=== PATIENT | female | born 1980 | race Caucasian/White ===

== ENCOUNTER 2018-08-09 19:40 | Observation (INO) | payer MEDICAID, SELFPAY ==
[2018-08-09] VITALS (9 sets, daily range): BP systolic 119–158; BP diastolic 62–85; PULSE 88–98; RESP 18–28; TEMP 36.4–36.7; O2SAT 92–94; BMI 51.7
--- NOTE | 2018-08-09 19:57 | EKG12_ITS ---
Test Reason : SOB Blood Pressure : / mmHG Vent. Rate : 083 BPM Atrial Rate : 083 BPM P-R Int : 172 ms QRS Dur : 102 ms QT Int : 394 ms P-R-T Axes : 060 -35 048 degrees QTc Int : 462 ms Sinus rhythm with occasional Premature ventricular complexes Left axis deviation Incomplete right bundle branch block Moderate voltage criteria for LVH, may be normal variant Possible Lateral infarct , age undetermined Abnormal ECG Confirmed by JOSE REYNA, MITZI ([id number]), photograph editor DANUTA HERRERA ([id number]) on 08/14/2018 8:41:50 AM Referred By: Lobito Zhang Confirmed By:MITZI GARCIA MD
--- NOTE | 2018-08-09 19:58 | CT_ITS ---
STUDY: CTA CHEST REASON FOR EXAM: Female, 37 years old. Shortness of breath. Elevated WBC. History of DVT and pulmonary embolus. RADIATION DOSAGE (If Supplied By Facility): CTDIvol = ( 15.06 ) mGy, DLP = ( 656.33 ) mGycm TECHNIQUE: The examination was performed with the intravenous administration of 100ML ml of Isovue 370 contrast material. Post-processing of the angiographic images was performed, with multiplanar reformation and 3D reconstruction. Individualized dose optimization techniques were used for this CT. COMPARISON: CTA of the chest, October 19, 2014. Chest, January 18, 2015. FINDINGS: Normal enhancement of the main pulmonary artery and right and left pulmonary arteries. Normal enhancement of the bilateral peripheral pulmonary arteries. There is no demonstrated pulmonary embolism. Normal thoracic aorta and visualized great vessels. There is no demonstrated aortic dissection. The heart is mildly enlarged. Normal pericardium. There is stable prevascular paratracheal and subcarinal lymphadenopathy. Normal hilar regions. Normal visualized trachea and bronchi. The lungs are well expanded. There are patchy infiltrates at the lung bases. Minimal anterior upper lobe densities are also seen. These findings appear stable when compared to the previous examination. Normal pleura. Normal chest wall structures. Normal osseous structures. Normal visualized upper abdomen. CT/CTA Chest W/WO Contrast IMPRESSION: 1. No evidence of pulmonary embolus. 2. No aortic dissection or aneurysm. 3. Chronic pulmonary infiltrates. 4. Stable mediastinal lymphadenopathy. Electronically Signed: Panchito Ontiveros DO at 21:37 EST Tel [phone], Service support ,
--- NOTE | 2018-08-09 20:02 | ED.DCSUM_ITS ---
- ER Visit Summary Date of Service: 08/09/18 Chief Complaint: Shortness of breath, cough History of Present Illness: The patient is a 37 F presenting with cough, shortness of breath. This started on Monday. She was seen at urgent care on Monday. She was started on Mucinex, Z-Myke. She states she is not improved. She was advised to come to the ED today for further evaluation. She has shortness of breath, rhinorrhea, sore throat. She states her sore throat has started to improve. She has a history of previous PE. She denies chest pain. She is not on anticoagulants. She takes albuterol as needed at home but states she has no diagnosed lung disease. She is not a smoker. Physical Examination: Vitals are stable. Respiratory rate 28. Patient is afebrile. Alert no acute distress. HEENT exam is unremarkable. Neck is supple. Lungs expiratory wheezing bilaterally. Tachypnea Heart is regular rate and rhythm. Abdomen is soft nontender nondistended. Extremities are unremarkable. Skin is warm and dry. No focal neurologic deficit. Remainder of exam is unremarkable. Emergency Department Course and Treatment: Patient was given albuterol, Atrovent aerosols. EKG is sinus rate of 83. White count is 19.2. Chemistries unremar kable. Troponin 0.045. CTA chest shows no PE, patchy infiltrates. She was given Levaquin IV. Patient walked to the bathroom and after ambulation she was 87% on room air. Discussed with the hospitalist for admission. Disposition: Admission Impression: Bronchitis, hypoxia This note was generated with [employer] dictation software. It may contain incorrect words, spelling, and punctuation that were not noted in review of the chart prior to signing ED Disposition - Plan for ED Patient: Referrals: Uziel Nieves MD [Primary Care Provider] -
[2018-08-09] MEDS: Ipratropium/Albuterol Sulfate 3 ML AMPUL.NEB INHALATION (20:22)
[2018-08-09 20:25] LABS: Absolute Lymphocyte Count 1.56 X10^3/ul (0.83-4.51); Absolute Neutrophil Count 15.4 X10^3/uL (2.0-7.7); Basophil# 0.03 X10^3/uL; Basophil% 0.2 % (0-1); Differential Indicated SCAN CRITERIA MET; Eosinophil# 0.02 X10^3/uL; Eosinophils% 0.1 % (0-5); Hematocrit 40.7 % (37-47); Hemoglobin 12.8 g/dl (12.0-15.0); Lymphocyte # 1.56 X10^3/ul (4.0); Lymphocyte % 8.1 % (19-41); Mean Corp Hgb Conc 31.4 g/gl (32-36); Mean Corpuscular Hgb 25.4 pg (27.0-32.0); Mean Corpuscular Volume 80.9 fL (81-99); Mean Platelet Vol. 9.7 fl (6.2-12.0); Monocyte# 2.09 X10^3/uL; Monocyte% 10.9 % (0-10); Neutrophil % 80.4 % (47-70); POSITIVE COUNT NO; POSITIVE DIFFERENTIAL YES; POSITIVE MORPHOLOGY NO; Platelet Count 312 K/mm3 (150-450); RBC Distribution Width CV 14.8 % (11.6-14.6); Red Blood Count 5.03 M/mm3 (4.2-5.4); White Blood Count 19.2 K/mm3 (4.4-11.0)
[2018-08-09 20:37] LABS: Anion Gap 8 (5-15); BUN 21 mg/dL (7-18); BUN/Creat Ratio 25.3 RATIO (10-20); Calcium,Total 8.4 mg/dL (8.5-10.1); Chloride 103 mmol/L (98-107); Creatinine, Serum 0.83 mg/dL (0.55-1.02); EST Glomerular Filtration Rate 82 mL/min (>60); Est Glom Filt Rate - Afr Amer 99 mL/min (>60); Estimated Creatinine Clearance 92.71 ml/min; Glucose 107 mg/dL (74-106); Potassium 3.8 mmol/L (3.5-5.1); Sodium Level 137 mmol/L (136-145)
[2018-08-09 20:52] LABS: Platelet Estimate ADEQUATE (ADEQ)
[2018-08-09 20:53] LABS: Red Cell Morphology NORM C+C NORMAL (NORM C&C)
--- NOTE | 2018-08-09 22:56 | ED.RN ---
WHEN PT WALKED BACK FROM BATHROOM UPON SITTING IN HER BED HER SPO2 WAS 87% WITH LABORED BREATHING
[2018-08-09] MEDS: Albuterol 2.5 MG/3 ML VIAL.NEB. INHALATION (23:18)
--- NOTE | 2018-08-09 23:29 | PCM.HP.STD ---
Problem List (1) History of pulmonary embolism Status: Chronic (2) Chronic interstitial lung disease Status: Chronic (3) Connective tissue disease Status: Chronic (4) Morbid obesity Status: Chronic History of Present Illness Date of Admission: 08/09/18 Chief Complaint: Productive cough, shortness of breath. The patient is a 37 year old F with past medical history as mentioned above presented to the emergency because of productive cough and shortness of breath. Her symptoms started 5 days ago with increasing shortness of breath, mainly with moderate activity and sometimes even with minimal activity, associated with reactive cough with moderate amount of thick green sputum, aggravated by exertion, minimally relieved with rest and without other associated symptoms. She was seen 3 days ago at the urgent care and she was given Z-Myke and steroids but she is stated there was no improvement. She mentioned that she has been having this chronic productive cough with thick green sputum for a long time and basically when she was diagnosed with connective tissue disease according to the patient with lung involvement. She has been following up with pulmonology as outpatient at [facility] but there was no official diagnosis given for her lung problems. Today in the emergency room, patient was afebrile, blood pressure and heart rate was stable, pulse ox was 94% on room air at rest. With ambulation, her pulse ox went down to 87% on room air and she had labored breathing. Her routine blood work was remarkable for leukocytosis, otherwise normal. EKG revealed normal sinus rhythm with occasional PVCs, no acute ischemic changes. Troponin was negative. CTA chest done because she had a history of PEs and showed no evidence of acute PE, no dissection and revealed chronic pulmonary infiltrate and stable mediastinal lymphadenopathy. She is being admitted for probable acute bronchitis and hypoxia.. Past Medical History Past Medical History (Chronic Problems): Chronic Problems History of pulmonary embolism (Chronic) Chronic interstitial lung disease (Chronic) Connective tissue disease (Chronic) Morbid obesity (Chronic) Allergies cephalexin monohydrate [From Keflex] Allergy (Verified 08/09/18 19:43) Rash heparin Allergy (Verified 08/09/18 19:43) Rash Penicillins Allergy (Verified 08/09/18 19:43) Rash Home Medications: Ambulatory Orders Medication Instructions Recorded Vits [Prenatabs FA] 1 tablet PO DAILY 01/18/15 Gabapentin [Neurontin] 300 mg PO BID 12/11/15 Omeprazole [Prilosec] 40 mg PO BID 12/11/15 Albuterol Inhaler [Ventolin Hfa 1 - 2 puff INHALATION Q4H PRN PRN 08/13/16 (SP)] Aspirin 81 mg PO DAILY 08/13/16 Hydroxychloroquine [Plaquenil] 200 mg PO BIDCM 10/17/16 Loratadine [Claritin] 10 mg PO DAILY 08/09/18 Surgical History: noncontributory Psychiatric History: No pertinent psych hx [employer] History: No pertinent [employer] history Lives: Spouse/ Significant Other Smoking Status: Former smoker Alcohol: None Drugs: None - *Family History Maternal History Items: No pertinent history Paternal History Items: No pertinent history Review of Systems Constitutional: Denies: Anorexia, Chills, Fever, Malaise, Weakness Eyes: Denies: Blurred vision, Double vision, Drainage, Eyelid Inflammation, Redness HEENT: Denies: Ear Pain, Eye Pain, Nasal Congestion, Sore Throat Cardiovascular: Denies: Chest Pain, Chest Pressure, Palpitations, Paroxysmal Noc. Dyspnea, Syncope Respiratory: Reports: Cough, Shortness of Breath, Shortness of breath upon exertion, Sputum production. Denies: Pleuritic Pain, Wheezing Gastrointestinal: Denies: Abdominal Pain, Constipation, Diarrhea, Nausea, Vomiting Genitourinary: Denies: Dysuria, Frequency, Hematuria Musculoskeletal: Denies: Arm Pain, Back Pain, Foot Pain Skin: Denies: Dryness, Rash Neurological: Denies: Balance problems, Double vision, Change in Speech, Focal weakness, Headaches, Incoordination, Numbness Psychiatric: Denies: Anxiety, Depression Endocrine: Denies: Change in Body Habitus, Polydipsia VTE Information - Inpt Only VTE Present on Admission: No VTE Mechan Device Prophylaxis: SCD's VTE Pharm Prophylaxis ordered?: No - Physical Exam General: Alert, Oriented x3, Cooperative, No apparent distress HEENT: Atraumatic, PERRLA, EOMI, Normocephalic Oral: Moist Mucosa, No Gingival or Mucosal Lesions/ Ulcerations Neck: Supple, No JVD, Negative Carotid Bruits, Trachea Midline, Thyroid Normal Size and Texture Lungs: Clear to auscultation, No rhonchi, No wheeze, No rales Cardiovascular: Regular Rhythm, Normal S1, Normal S2, PMI Normal Abdomen: Bowel Sounds Present, Soft, Non Tender, Non-Distended, No Hepato-splenomegaly, Obese Extremities: No clubbing, No cyanosis, No edema Skin: No rashes, No breakdown Lymphatic: No Cervical, Supraclavicular, or Inguinal Adenopathy Neurological: Cranial nerves II-XII grossly intact, Motor Exam 5/5 strength throughout Psych/Mental Status: Normal Affect, Appropriate, Alert and oriented to time, place, person, mood and affect Vital Signs Temp Pulse Resp BP Pulse Ox 97.9 F 82 14 133/80 H 93 08/09/18 23:00 08/09/18 23:18 08/09/18 23:18 08/09/18 23:00 08/09/18 23:00 Oxygen Delivery Method Room Air Weight: 340 lb Body Mass Index (BMI) 51.7 Laboratory Tests Past 24 Hrs 08/09/18 08/09/18 20:11 20:11 WBC 19.2 H RBC 5.03 Hgb 12.8 Hct 40.7 MCV 80.9 L MCH 25.4 L MCHC 31.4 L RDW 14.8 H RDW Differential 43.0 Plt Count 312 MPV 9.7 Immature Gran % (Auto) 0.300 Neut % (Auto) 80.4 H Lymph % (Auto) 8.1 L [place] % (Auto) 10.9 H Eos % (Auto) 0.1 Baso % (Auto) 0.2 Absolute Neuts (auto) 15.4 H Absolute Lymphs (auto) 1.56 Total Counted Not Reportable Differential Comment SEE COMMENT Diff Path Review May foll Platelet Estimate ADEQUATE RBC Morphology NORM C+C Sodium 137 Potassium 3.8 Chloride 103 Carbon Dioxide 26.0 Anion Gap 8 BUN 21 H Creatinine 0.83 Estim Creat Clear Calc 92.71 Est GFR (MDRD) Af Amer 99 Est GFR (MDRD) Non-Af 82 BUN/Creatinine Ratio 25.3 H Glucose 107 H Calcium 8.4 L Troponin I 0.045 Clinical Impression(s) from Imaging Studies Chest CTA 08/09/18 19:58 IMPRESSION: 1. No evidence of pulmonary embolus. 2. No aortic dissection or aneurysm. 3. Chronic pulmonary infiltrates. 4. Stable mediastinal lymphadenopathy. Electronically Signed: Panchito Ontiveros DO at 21:37 EST Tel [phone], Service support , Assessment/Plan This is a 37 years old female patient presented to the ED because of shortness of breath and productive cough, was on Z-Myke and steroids as outpatient without improvement, found to have chronic pulmonary infiltrate on CTA chest without evidence of acute PE or dissection, found to have leukocytosis and she was hypoxic with ambulation. #1 shortness of breath/productive cough/probable acute bronchitis: CTA chest reviewed, revealed chronic pulmonary infiltrate, no acute findings. Patient did have a history of chronic lung disease, has been following with pulmonology at [facility] and no official diagnosis made according to the patient. She has been using inhalers, nebulizer treatment and oxygen at home. She is oxygen mainly with exertion. Her mentioned that she never passed ambulatory pulse oximeter. She does have leukocytosis which is likely because of recent use of steroids. Patient wanted to go home but the ER physician that she should be admitted. At this time, pneumonia is unlikely. Plan[facility], sputum culture, respiratory panel for viruses, DuoNeb every 6 hours, albuterol as needed, start IV empiric Levaquin, incentive spirometer, chest physiotherapy, repeat CBC tomorrow morning, ambulatory pulse oximetry tomorrow morning. #2 connective tissue disease/fibromyalgia/probable chronic interstitial lung disease: Without official diagnosis, follows up with [facility] pulmonology [place]. Plan as above, continue Plaquenil and Neurontin. #3 chronic respiratory failure, on home oxygen mainly with exertion. As above. #4 history of PE: Completed treatment with anti-correlation with time ago. CTA chest negative for acute PE. #5 DVT prophylaxis: SCDs. This note was generated with [employer] dictation software. It may contain incorrect words, spelling, and punctuation that were not noted in checking the note before signing. Code Visit OBSV E&M: 71044 Initial observation care L2
[2018-08-09] MEDS: levoFLOXacin IV 750 MG/150 ML BAG 100 MG IV (23:39)
[2018-08-10] VITALS (12 sets, daily range): BP systolic 119–140; BP diastolic 72–85; PULSE 71–93; RESP 18–24; TEMP 36.3–36.6; O2SAT 87–96; BMI 56.2
[2018-08-10] MEDS: Ipratropium/Albuterol Sulfate 3 ML AMPUL.NEB INHALATION ×3 (00:45→13:15)
[2018-08-10 06:33] LABS: Absolute Lymphocyte Count 1.94 X10^3/ul (0.83-4.51); Basophil# 0.03 X10^3/uL; Basophil% 0.2 % (0-1); Eosinophil# 0.01 X10^3/uL; Eosinophils% 0.1 % (0-5); Hematocrit 39.5 % (37-47); Hemoglobin 12.8 g/dl (12.0-15.0); Lymphocyte # 1.94 X10^3/ul (4.0); Lymphocyte % 14.4 % (19-41); Mean Corp Hgb Conc 32.4 g/gl (32-36); Mean Corpuscular Volume 80.3 fL (81-99); Monocyte# 1.45 X10^3/uL; Monocyte% 10.7 % (0-10); Neutrophil # 10.04 X10^3/uL (2.7-7.7); Neutrophil % 74.4 % (47-70); Platelet Count 330 K/mm3 (150-450); Red Blood Count 4.92 M/mm3 (4.2-5.4); White Blood Count 13.5 K/mm3 (4.4-11.0)
[2018-08-10 06:35] LABS: POSITIVE COUNT NO; POSITIVE DIFFERENTIAL NO; POSITIVE MORPHOLOGY NO
--- NOTE | 2018-08-10 06:47 | PN_ITS ---
Subjective: The patient is a 37-year-old female with a past medical history of chronic interstitial lung disease, history of pulmonary embolism, super morbid obesity and an unspecified connective tissue disease for which she takes Plaquenil who presented to the emergency room at [facility] complaining of cough productive of green sputum and shortness of breath aggravated with exertion. She was seen at an urgent care 3 days prior to presenting to the emergency room and was given a Z-Myke and oral steroids with no improvement. CTA of the chest was negative for pulmonary embolism but did show chronic infiltrates in the bases and stable mediastinal lymphadenopathy that has been present since 2015. Vital signs in the emergency department were temperature 97.5, pulse rate 98, blood pressure 158/85, respiratory rate of 28 and she was 93% saturated on room air. She has home O2 and wears this primarily with exertion. Pulse ox with exertion was 87% on room air. On physical examination by the night hospitalist the lungs were clear to auscultation without wheezes, rhonchi or rails. CBC showed an elevated white blood cell count at 19.2 but the patient has been on oral steroids. Hemoglobin and platelets were within normal limits but the MCV is decreased at 80.9 with an RDW of 14.8. BMP was remarkable for an elevated BUN at 21 with a creatinine of 0.83 and I suspect this is secondary to steroids. Troponin was 0.045 and within normal limits. - Physical Exam Vital Signs Temp Pulse Resp BP Pulse Ox 97.8 F 71 22 H 119/80 96 08/10/18 06:16 08/10/18 06:16 08/10/18 06:16 08/10/18 06:16 08/10/18 06:16 Oxygen Delivery Method Room Air Weight: 359 lb 2.128 oz Body Mass Index (BMI) 56.2 Laboratory Tests Past 24 Hrs 08/09/18 08/09/18 08/10/18 20:11 20:11 06:08 WBC 19.2 H 13.5 H RBC 5.03 4.92 Hgb 12.8 12.8 Hct 40.7 39.5 MCV 80.9 L 80.3 L MCH 25.4 L 26.0 L MCHC 31.4 L 32.4 RDW 14.8 H 15.0 H RDW Differential 43.0 43.0 Plt Count 312 330 MPV 9.7 10.0 Immature Gran % (Auto) 0.300 0.200 Neut % (Auto) 80.4 H 74.4 H Lymph % (Auto) 8.1 L 14.4 L [place] % (Auto) 10.9 H 10.7 H Eos % (Auto) 0.1 0.1 Baso % (Auto) 0.2 0.2 Absolute Neuts (auto) 15.4 H 10.0 H Absolute Lymphs (auto) 1.56 1.94 Total Counted Not Reportable Not Reportable Differential Comment SEE COMMENT Diff Path Review May foll Platelet Estimate ADEQUATE RBC Morphology NORM C+C Sodium 137 Potassium 3.8 Chloride 103 Carbon Dioxide 26.0 Anion Gap 8 BUN 21 H Creatinine 0.83 Estim Creat Clear Calc 92.71 Est GFR (MDRD) Af Amer 99 Est GFR (MDRD) Non-Af 82 BUN/Creatinine Ratio 25.3 H Glucose 107 H Calcium 8.4 L Troponin I 0.045 Medical Necessity - Tobacco Use Smoking Status: Former smoker
--- NOTE | 2018-08-10 08:14 | PCM.CONS.GEN ---
Reason for Consult Date of Consultation: 08/10/18 Reason for Consultation: Abnormal CT chest with history of ILD History of Present Illness: The patient is a 37-year-old female, with a history as outlined below, who presented to the emergency department on August 09 with complaints of shortness of breath and cough. The patient reports that she was recently evaluated in the urgent care for the aforementioned symptoms and treated with a Z-Myke and prednisone. However, her symptoms did not improve and she states that she noted her oxygen levels to be low on her home pulse oximeter, at rest, in the high 80s. The patient does not routinely utilize supplemental oxygen at her baseline. The patient reports a remote smoking history, but quit completely 10+ years ago. She is currently followed by Dr. Onofre at the [facility]. She reports a history of underlying mixed connective tissue disease, with potential lung involvement. She is currently prescribed an albuterol metered-dose inhaler and reports occasional use. She reports limited symptom improvement with the use of the aforementioned medication. She is currently on treatment with Plaquenil by her personal banking advisor. She does report that her shortness of breath has worsened over the last year, which happens to coincide with a 50 pound weight gain. She does report having had pulmonary function studies completed previously, but is unaware of the results. She is not currently employed. The patient has undergone a sleep study approximately 3 years ago, for which she was prescribed nocturnal PAP therapy. However, she is noncompliant with its use due to an ill fitting mask. I did inquire as to whether the patient has ever undergone an echocardiogram and evaluation for pulmonary hypertension. The patient denied having undergone such a test previously, but did report that she was scheduled for an echo this morning at the [facility]. In addition, the patient does report having been diagnosed with pulmonary emboli in 2013. She was treated for a period of time with anticoagulation, but that has since been discontinued. On arrival to the emergency department, the patient was noted to be afebrile and mildly hypertensive. She was initially maintaining appropriate oxygen saturations on room air, but reportedly became hypoxic with ambulation. Initial laboratory evaluation revealed elevated white blood cell count to 19,000. Chemistry profile was unrevealing. Troponin was negative. A CTA chest was obtained which revealed no evidence for pulmonary embolism. There was stable appearing mediastinal adenopathy and patchy infiltrates bilaterally, which appear more peripheral based. There was no gross evidence of bronchiectasis. The patient was started on antibiotics and aerosols. She was subsequently admitted to the medical surgical floor for ongoing management. Past Medical History Past Medical History (Chronic Problems): Chronic Problems History of pulmonary embolism (Chronic) Chronic interstitial lung disease (Chronic) Connective tissue disease (Chronic) Morbid obesity (Chronic) Allergies cephalexin monohydrate [From Keflex] Allergy (Verified 08/09/18 19:43) Rash heparin Allergy (Verified 08/09/18 19:43) Rash Penicillins Allergy (Verified 08/09/18 19:43) Rash Home Medications: Ambulatory Orders Medication Instructions Recorded Vits [Prenatabs FA ] 1 tablet PO DAILY 01/18/15 Gabapentin [Neurontin] 300 mg PO BID 12/11/15 Omeprazole [Prilosec] 40 mg PO BID 12/11/15 Albuterol Inhaler [Ventolin Hfa] 1 - 2 puff INHALATION Q4H PRN PRN 08/13/16 Aspirin 81 mg PO DAILY 08/13/16 Hydroxychloroquine [Plaquenil] 200 mg PO BIDCM 10/17/16 Loratadine [Claritin] 10 mg PO DAILY 08/09/18 Guaifenesin [Mucinex] 1,200 mg PO BID #30 tab 08/10/18 Levofloxacin [Levaquin] 750 mg PO DAILY #5 tab 08/10/18 Venlafaxine HCl [Effexor Xr] 75 mg PO DAILY #30 cap.er.24h 08/10/18 Surgical History: noncontributory Psychiatric History: No pertinent psych hx [employer] History: No pertinent [employer] history Lives: Spouse/ Significant Other Smoking Status: Former smoker Alcohol: None Drugs: None - *Family History Maternal History Items: No pertinent history Paternal History Items: No pertinent history Review of Systems Constitutional: Reports: Malaise, Fatigue. Denies: Chills, Fever Eyes: Denies: Blurred vision, Double vision HEENT: Reports: Sore Throat Cardiovascular: Denies: Chest Tightness Respiratory: Reports: Cough, Shortness of Breath, Sputum production Gastrointestinal: Denies: Abdominal Pain, Nausea, Vomiting Genitourinary: Denies: Dysuria Musculoskeletal: Denies: Joint Pain, Joint Tenderness Skin: Denies: Rash, Wounds Neurological: Denies: Numbness, Tingling, Focal weakness Psychiatric: Denies: Anxiety, Depression, Homicidal Ideations, Suicidal Ideations Hematologic/ Lymphatic: Reports: Hx of blood clot Objective: The patient's most recent lab work, culture data and imaging studies have all been personally reviewed. Respiratory viral panel and expectorated sputum culture are pending. - Physical Exam General: Alert, Oriented x3, Cooperative, No apparent distress, - - Morbidly obese. Sitting in bedside recliner. HEENT: Atraumatic, PERRLA, Normocephalic Oral: No Gingival or Mucosal Lesions/ Ulcerations Neck: Supple, No Nodes, Trachea Midline, - - Large neck circumference with redundant soft tissue Lungs: No rhonchi, No wheeze, Diminished, - - Bibasilar crackles present Cardiovascular: Regular rate, Regular Rhythm, Normal S1, Normal S2, No murmurs Abdomen: Bowel Sounds Present, Soft, Non Tender, Obese Extremities: No clubbing, No cyanosis Skin: No breakdown Musculoskeletal: No Tenderness to Palpation of Joints or Extremities Lymphatic: No Cervical, Supraclavicular, or Inguinal Adenopathy Neurological: Cranial nerves II-XII grossly intact, Neuro grossly intact Psych/Mental Status: Alert and oriented to time, place, person, mood and affect Vital Signs Temp Pulse Resp BP Pulse Ox 36.6 C 80 20 H 119/80 95 08/10/18 06:16 08/10/18 07:42 08/10/18 07:02 08/10/18 06:16 08/10/18 07:02 Oxygen Delivery Method Room Air Weight: 359 lb 2.128 oz Body Mass Index (BMI) 56.2 Laboratory Tests Past 24 Hrs 08/09/18 08/09/18 08/10/18 20:11 20:11 06:08 WBC 19.2 H 13.5 H RBC 5.03 4.92 Hgb 12.8 12.8 Hct 40.7 39.5 MCV 80.9 L 80.3 L MCH 25.4 L 26.0 L MCHC 31.4 L 32.4 RDW 14.8 H 15.0 H RDW Differential 43.0 43.0 Plt Count 312 330 MPV 9.7 10.0 Immature Gran % (Auto) 0.300 0.200 Neut % (Auto) 80.4 H 74.4 H Lymph % (Auto) 8.1 L 14.4 L [place] % (Auto) 10.9 H 10.7 H Eos % (Auto) 0.1 0.1 Baso % (Auto) 0.2 0.2 Absolute Neuts (auto) 15.4 H 10.0 H Absolute Lymphs (auto) 1.56 1.94 Total Counted Not Reportable Not Reportable Differential Comment SEE COMMENT Diff Path Review May foll Platelet Estimate ADEQUATE RBC Morphology NORM C+C Sodium 137 Potassium 3.8 Chloride 103 Carbon Dioxide 26.0 Anion Gap 8 BUN 21 H Creatinine 0.83 Estim Creat Clear Calc 92.71 Est GFR (MDRD) Af Amer 99 Est GFR (MDRD) Non-Af 82 BUN/Creatinine Ratio 25.3 H Glucose 107 H Calcium 8.4 L Troponin I 0.045 Clinical Impression(s) from Imaging Studies Chest CTA 08/09/18 19:58 IMPRESSION: 1. No evidence of pulmonary embolus. 2. No aortic dissection or aneurysm. 3. Chronic pulmonary infiltrates. 4. Stable mediastinal lymphadenopathy. Electronically Signed: Panchito Ontiveros DO at 21:37 EST Tel [phone], Service support , Assessment/Plan RECOMMENDATIONS: 1. Continue empiric antibiotics, pending infectious workup. 2. Perform room air ambulatory pulse ox 3. Obtain surface echocardiogram 4. Continue bronchodilators as ordered. IMPRESSIONS: 1. Exertional dyspnea/hypoxia/productive cough The patient reports a history of mixed connective tissue disease with lung involvement. Agree with continuing antibiotics, pending infectious workup. I do suspect that a large component of the patient's exertional dyspnea is likely the consequence of her body habitus. In addition, I would also be concerned about the possibility for underlying pulmonary hypertension. Therefore, I have placed an order to obtain an echocardiogram. I would plan to obtain a walking oximetry study to document the patient's oxygen saturations with exertion. Continue as needed albuterol. The patient is currently maintaining appropriate oxygen saturations on room air at rest. 2. Unspecified mixed connective tissue disease with potential lung involvement The findings noted on CT chest appear to be chronic in nature. Continue Plaquenil as ordered. 3. Super morbid obesity with underlying obstructive sleep apnea, noncompliant with nocturnal PAP therapy The sleep lab indicated that the patient underwent a titration PSG in December 2013, for which it was recommended that she be placed on Bipap with a pressure support of 10/4 cm H2O. However, given the patient's significant weight gain since that time, she would undoubtedly need to undergo a retitration study as an outpatient. 4. History of prior tobacco dependency/neuropathy/GERD/Personal history of prior venous thromboembolic disease Complicates care, management, recovery and prognosis. Continue home medications as indicated. This note was generated with [employer] dictation software. It may contain incorrect words, spelling, and punctuation that were not noted in checking the note before signing. Code Visit Inpatient E&M: 87431 Init Hosp L3
--- NOTE | 2018-08-10 08:28 | CON.PCM_ITS ---
Reason for Consult Date of Consultation: 08/10/18 Reason for Consultation: Abnormal CT chest with history of ILD History of Present Illness: The patient is a 37-year-old female, with a history as outlined below, who presented to the emergency department on August 09 with complaints of shortness of breath and cough. The patient reports that she was recently evaluated in the urgent care for the aforementioned symptoms and treated with a Z-Myke and prednisone. However, her symptoms did not improve and she states that she noted her oxygen levels to be low on her home pulse oximeter, at rest, in the high 80s. The patient does not routinely utilize supplemental oxygen at her baseline. The patient reports a remote smoking history, but quit completely 10+ years ago. She is currently followed by Dr. Onofre at the [facility]. She reports a history of underlying mixed connective tissue disease, with potential lung involvement. She is currently prescribed an albuterol metered- dose inhaler and reports occasional use. She reports limited symptom improvement with the use of the aforementioned medication. She is currently on treatment with Plaquenil by her roll clamp operator. She does report that her shortness of breath has worsened over the last year, which happens to coincide with a 50 pound weight gain. She does report having had pulmonary function studies completed previously, but is unaware of the results. She is not currently employed. The patient has undergone a sleep study approximately 3 years ago, for which she was prescribed nocturnal PAP therapy. However, she is noncompliant with its use due to an ill fitting mask. I did inquire as to whether the patient has ever undergone an echocardiogram and evaluation for pulmonary hypertension. The patient denied having undergone such a test previously, but did report that she was scheduled for an echo this morning at the [facility]. In addition, the patient does report having been diagnosed with pulmonary emboli in 2013. She was treated for a period of time with anticoagulation, but that has since been discontinued. On arrival to the emergency department, the patient was noted to be afebrile and mildly hypertensive. She was initially maintaining appropriate oxygen saturations on room air, but reportedly became hypoxic with ambulation. Initial laboratory evaluation revealed elevated white blood cell count to 19,000. Chemistry profile was unrevealing. Troponin was negative. A CTA chest was obtained which revealed no evidence for pulmonary embolism. There was stable appearing mediastinal adenopathy and patchy infiltrates bilaterally, which appear more peripheral based. There was no gross evidence of bronchiectasis. The patient was started on antibiotics and aerosols. She was subsequently admitted to the medical surgical floor for ongoing management. Past Medical History Past Medical History (Chronic Problems): Chronic Problems History of pulmonary embolism (Chronic) Chronic interstitial lung disease (Chronic) Connective tissue disease (Chronic) Morbid obesity (Chronic) Allergies cephalexin monohydrate [From Keflex] Allergy (Verified 08/09/18 19:43) Rash heparin Allergy (Verified 08/09/18 19:43) Rash Penicillins Allergy (Verified 08/09/18 19:43) Rash Home Medications: Ambulatory Orders Medication Instructions Recorded Vits [Prenatabs FA ] 1 tablet PO DAILY 01/18/15 Gabapentin [Neurontin] 300 mg PO BID 12/11/15 Omeprazole [Prilosec] 40 mg PO BID 12/11/15 Albuterol Inhaler [Ventolin Hfa] 1 - 2 puff INHALATION Q4H PRN PRN 08/13/16 Aspirin 81 mg PO DAILY 08/13/16 Hydroxychloroquine [Plaquenil] 200 mg PO BIDCM 10/17/16 Loratadine [Claritin] 10 mg PO DAILY 08/09/18 Guaifenesin [Mucinex] 1,200 mg PO BID #30 tab 08/10/18 Levofloxacin [Levaquin] 750 mg PO DAILY #5 tab 08/10/18 Venlafaxine HCl [Effexor Xr] 75 mg PO DAILY #30 cap.er.24h 08/10/18 Surgical History: noncontributory Psychiatric History: No pertinent psych hx [employer] History: No pertinent [employer] history Lives: Spouse/ Significant Other Smoking Status: Former smoker Alcohol: None Drugs: None - *Family History Maternal History Items: No pertinent history Paternal History Items: No pertinent history Review of Systems Constitutional: Reports: Malaise, Fatigue. Denies: Chills, Fever Eyes: Denies: Blurred vision, Double vision HEENT: Reports: Sore Throat Cardiovascular: Denies: Chest Tightness Respiratory: Reports: Cough, Shortness of Breath, Sputum production Gastrointestinal: Denies: Abdominal Pain, Nausea, Vomiting Genitourinary: Denies: Dysuria Musculoskeletal: Denies: Joint Pain, Joint Tenderness Skin: Denies: Rash, Wounds Neurological: Denies: Numbness, Tingling, Focal weakness Psychiatric: Denies: Anxiety, Depression, Homicidal Ideations, Suicidal Ideations Hematologic/ Lymphatic: Reports: Hx of blood clot Objective: The patient's most recent lab work, culture data and imaging studies have all been personally reviewed. Respiratory viral panel and expectorated sputum culture are pending. - Physical Exam General: Alert, Oriented x3, Cooperative, No apparent distress, - - Morbidly obese. Sitting in bedside recliner. HEENT: Atraumatic, PERRLA, Normocephalic Oral: No Gingival or Mucosal Lesions/ Ulcerations Neck: Supple, No Nodes, Trachea Midline, - - Large neck circumference with redundant soft tissue Lungs: No rhonchi, No wheeze, Diminished, - - Bibasilar crackles present Cardiovascular: Regular rate, Regular Rhythm, Normal S1, Normal S2, No murmurs Abdomen: Bowel Sounds Present, Soft, Non Tender, Obese Extremities: No clubbing, No cyanosis Skin: No breakdown Musculoskeletal: No Tenderness to Palpation of Joints or Extremities Lymphatic: No Cervical, Supraclavicular, or Inguinal Adenopathy Neurological: Cranial nerves II-XII grossly intact, Neuro grossly intact Psych/Mental Status: Alert and oriented to time, place, person, mood and affect Vital Signs Temp Pulse Resp BP Pulse Ox 36.6 C 80 20 H 119/80 95 08/10/18 06:16 08/10/18 07:42 08/10/18 07:02 08/10/18 06:16 08/10/18 07:02 Oxygen Delivery Method Room Air Weight: 359 lb 2.128 oz Body Mass Index (BMI) 56.2 Laboratory Tests Past 24 Hrs 08/09/18 08/09/18 08/10/18 20:11 20:11 06:08 WBC 19.2 H 13.5 H RBC 5.03 4.92 Hgb 12.8 12.8 Hct 40.7 39.5 MCV 80.9 L 80.3 L MCH 25.4 L 26.0 L MCHC 31.4 L 32.4 RDW 14.8 H 15.0 H RDW Differential 43.0 43.0 Plt Count 312 330 MPV 9.7 10.0 Immature Gran % (Auto) 0.300 0.200 Neut % (Auto) 80.4 H 74.4 H Lymph % (Auto) 8.1 L 14.4 L [place] % (Auto) 10.9 H 10.7 H Eos % (Auto) 0.1 0.1 Baso % (Auto) 0.2 0.2 Absolute Neuts (auto) 15.4 H 10.0 H Absolute Lymphs (auto) 1.56 1.94 Total Counted Not Reportable Not Reportable Differential Comment SEE COMMENT Diff Path Review May foll Platelet Estimate ADEQUATE RBC Morphology NORM C+C Sodium 137 Potassium 3.8 Chloride 103 Carbon Dioxide 26.0 Anion Gap 8 BUN 21 H Creatinine 0.83 Estim Creat Clear Calc 92.71 Est GFR (MDRD) Af Amer 99 Est GFR (MDRD) Non-Af 82 BUN/Creatinine Ratio 25.3 H Glucose 107 H Calcium 8.4 L Troponin I 0.045 Clinical Impression(s) from Imaging Studies Chest CTA 08/09/18 19:58 IMPRESSION: 1. No evidence of pulmonary embolus. 2. No aortic dissection or aneurysm. 3. Chronic pulmonary infiltrates. 4. Stable mediastinal lymphadenopathy. Electronically Signed: Panchito Ontiveros DO at 21:37 EST Tel [phone], Service support , Assessment/Plan RECOMMENDATIONS: 1. Continue empiric antibiotics, pending infectious workup. 2. Perform room air ambulatory pulse ox 3. Obtain surface echocardiogram 4. Continue bronchodilators as ordered. IMPRESSIONS: 1. Exertional dyspnea/hypoxia/productive cough The patient reports a history of mixed connective tissue disease with lung involvement. Agree with continuing antibiotics, pending infectious workup. I do suspect that a large component of the patient's exertional dyspnea is likely the consequence of her body habitus. In addition, I would also be concerned about the possibility for underlying pulmonary hypertension. Therefore, I have placed an order to obtain an echocardiogram. I would plan to obtain a walking oximetry study to document the patient's oxygen saturations with exertion. Continue as needed albuterol. The patient is currently maintaining appropriate oxygen saturations on room air at rest. 2. Unspecified mixed connective tissue disease with potential lung involvement The findings noted on CT chest appear to be chronic in nature. Continue Plaquenil as ordered. 3. Super morbid obesity with underlying obstructive sleep apnea, noncompliant with nocturnal PAP therapy The sleep lab indicated that the patient underwent a titration PSG in December 2013, for which it was recommended that she be placed on Bipap with a pressure support of 10/4 cm H2O. However, given the patient's significant weight gain since that time, she would undoubtedly need to undergo a retitration study as an outpatient. 4. History of prior tobacco dependency/neuropathy/GERD/Personal history of prior venous thromboembolic disease Complicates care, management, recovery and prognosis. Continue home medications as indicated. This note was generated with [employer] dictation software. It may contain incorrect words, spelling, and punctuation that were not noted in checking the note before signing. Code Visit Inpatient E&M: 90191 Init Hosp L3
--- NOTE | 2018-08-10 08:41 | ECHOCS_ITS ---
Reason For Study: Dyspnea/SOB Procedure This was a 2D Doppler, Color Flow transthoracic echocardiogram. Contrast injection was performed. The study was technically difficult. Exam performed portable in patient room. Left Ventricle Normal size and thickness. The estimated ejection fraction is 65 %. Normal diastology for age. No regional wall motion abnormalities noted. Right Ventricle Moderately dilated right ventricle. Normal systolic function. Atria The left atrium is moderately enlarged. The right atrium is mildly enlarged. Normal atrial septum. Mitral Valve The mitral valve is structurally normal. No prolapse or stenosis seen. Tricuspid Valve Normal tricuspid valve. Trivial tricuspid valve insufficiency. Right ventricular systolic pressure estimated to be 39 mmHg. Mild pulmonary hypertension. Aortic Valve Normal aortic valve. Trisinus/trileaflet aortic valve. Pulmonic Valve The pulmonic valve is not well visualized. Great Vessels Normal aortic root. Normal arch. The inferior vena cava is dilated. No collapse of the inferior vena cava. Pericardium/Pleural No pericardial effusion. Medication Diluted definity 2ml given slow IV push to enhance endocardial definition. MMode/2D Measurements & Calculations LVIDd: 5.0 cm IVSd: 1.2 cm Ao root diam: 2.5 cm LVIDs: 3.1 cm LVPWd: 0.85 cm RVDd: 4.2 cm FS: 38.3 % LAV(MOD-bp): 67.4 ml LVAd ap4: 37.0 cm2 SV(MOD-sp4): 84.8 ml LAV(MOD-bp) Indexed: 26.1 ml/m2 EDV(MOD-sp4): 130.2 ml LAV(MOD-sp2): 53.4 ml EDV(sp4-el): 136.6 ml LAV(MOD-sp4): 80.5 ml LVAs ap4: 19.6 cm2 ESV(MOD-sp4): 45.4 ml ESV(sp4-el): 48.3 ml EF(MOD-sp4): 65.1 % EF(sp4-el): 64.6 % SV(sp4-el): 88.2 ml LA A4 area: 24.9 cm2 LA dimension(2D): 5.2 cm RA A4 area: 21.3 cm2 Doppler Measurements & Calculations MV E max vikash: 99.5 cm/sec Lat Peak E' Vikash: 10.4 cm/sec Med Peak E' Vikash: 8.6 cm/sec MV A max vikash: 77.4 cm/sec E/E' lat: 9.6 E/E' med: 11.6 MV E/A: 1.3 Ao V2 max: 239.3 cm/sec LV V1 max: 158.5 cm/sec PA V2 max: 148.3 cm/sec Ao max P.9 mmHg LV V1 max P.1 mmHg Ao V2 mean: 165.5 cm/sec LV V1 mean P.6 mmHg Ao mean P.0 mmHg LV V1 mean: 110.2 cm/sec Ao V2 VTI: 42.7 cm LV V1 VTI: 32.1 cm TR max vikash: 290.4 cm/sec TR max P.7 mmHg Interpretation Summary The estimated ejection fraction is 65 %. Normal diastology for age. Moderately dilated right ventricle. The left atrium is moderately enlarged. The right atrium is mildly enlarged. Trivial tricuspid valve insufficiency. Right ventricular systolic pressure estimated to be 39 mmHg. Mild pulmonary hypertension. Compared to echo report dated 10/01/2012, LV function has remained the same, but pt now demonstrates RV enlargement and at least mild pulmonary HTN by echo,. The study was technically difficult. Contrast injection was performed. Ordering Physician: Dominick Romero D.O. Referring Physician: Uziel Nieves Performed By: Bess Jarrett RDCS, RVT
[2018-08-10] MEDS: guaiFENesin 1,200 MG Tablet 1200 MG PO (10:27)
[2018-08-10] MEDS: Gabapentin 300 MG Capsule PO (10:27)
[2018-08-10] MEDS: Hydroxychloroquine 200 MG Tablet PO (10:27)
[2018-08-10] MEDS: Pantoprazole Sodium 40 MG Tablet PO (10:27)
[2018-08-10] MEDS: Loratadine 10 MG Tablet PO (10:27)
[2018-08-10] MEDS: Aspirin 81 MG TAB.CHEW PO (10:27)
--- NOTE | 2018-08-10 10:48 | PCM.DC ---
- Discharge Diagnoses Current Active Problems: Current Active and Chronic Problems History of pulmonary embolism (Chronic) Chronic interstitial lung disease (Chronic) Connective tissue disease (Chronic) You will use the following diet at home:: Calorie/Carbohydrate Controlled (specify 1200, 1400, etc) - 1800 to 2000 calories Your food should be the consistency of: Regular Your liquids should be the consistency of: Regular/Thin Discharge Activity: - - Avoid exposure to any strong smells such as bleach, cleaning products, strong colognes or perfumes, paint fumes and smoke of any kind. Avoid sudden exposure to cold air because this can cause bronchospasm. You may want to cover your mouth when you go outside in the winter. Avoid exposure to anyone who is sick with a cough or sore throat. Call your doctor if you observe: Fever of 101 or Higher, Dizziness, Fainting spells, Chest pain Instructions: MyPlate Worksheet: 2,000 Calories Additional Instructions: Untreated sleep apnea leads to high blood pressure in the lungs and the most frequent cause is untreated sleep apnea. Untreated sleep apnea causes cloudy thinking, depression, problems with the rhythm of the heart, headaches, chronic fatigue.....etc. Please discuss with Dr. Onofre having a retitration study for CPAP or BIPAP so that the proper pressure for the mask can be determined. There are many different kinds of masks to try now. Losing weight will definitely help with shortness of breath. I am giving you a prescription for a medications called Effexor that treats anxiety and depression, helps with chronic pain and also suppresses appetite. I think it would be a good idea to follow up with the [facility] program run by the physical education department chair's here at the hospital........I know many people who have been successful with their weight loss program. It is almost impossible to conquer an addiction when you are overwhelmed, anxious and depressed. Food is an addiction for many people. I hope that the Effexor helps with your anxiety/depression. Give it at least a 3-6 month period of taking it daily to see if it helps. I also recommend counselling......it helps to talk these things out with a professionsal. Pending Tests on Discharge: sputum culture Allergies/Adverse Reactions: Allergies cephalexin monohydrate [From Keflex] Allergy (Verified 08/09/18 19:43) Rash heparin Allergy (Verified 01/31/19 19:43) Rash Penicillins Allergy (Verified 08/09/18 19:43) Rash Medications to take at Discharge Vits [Prenatabs FA ] 1 tablet PO DAILY 01/18/15 Gabapentin [Neurontin] 300 mg PO BID 12/11/15 Omeprazole [Prilosec] 40 mg PO BID 12/11/15 Albuterol Inhaler [Ventolin Hfa] 1 - 2 puff INHALATION Q4H PRN PRN 08/13/16 Aspirin 81 mg PO DAILY 08/13/16 Hydroxychloroquine [Plaquenil] 200 mg PO BIDCM 10/17/16 Loratadine [Claritin] 10 mg PO DAILY 08/09/18 Guaifenesin [Mucinex] 1,200 mg PO BID #30 tab 08/10/18 Levofloxacin [Levaquin] 750 mg PO DAILY #5 tab 08/10/18 The following prescriptions were given: Levofloxacin [Levaquin] 750 mg PO DAILY #5 tab Guaifenesin [Mucinex] 1,200 mg PO BID #30 tab Primary Care Physician: Uziel Nieves MD [Primary Care Provider] - Please follow up with your Primary Care Physician in: 5-7 days Test Results: Test results from this visit will be discussed in further detail at your follow-up appointment, if applicable. Please Follow Up With: Dannie Onofre MD When: as needed Proposed Discharge Date: 08/10/18
--- NOTE | 2018-08-10 10:52 | DCINST_ITS ---
- Discharge Diagnoses Current Active Problems: Current Active and Chronic Problems History of pulmonary embolism (Chronic) Chronic interstitial lung disease (Chronic) Connective tissue disease (Chronic) You will use the following diet at home:: Calorie/Carbohydrate Controlled (specify 1200, 1400, etc) - 1800 to 2000 calories Your food should be the consistency of: Regular Your liquids should be the consistency of: Regular/Thin Discharge Activity: - - Avoid exposure to any strong smells such as bleach, cleaning products, strong colognes or perfumes, paint fumes and smoke of any kind. Avoid sudden exposure to cold air because this can cause bronchospasm. You may want to cover your mouth when you go outside in the winter. Avoid exposure to anyone who is sick with a cough or sore throat. Call your doctor if you observe: Fever of 101 or Higher, Dizziness, Fainting spells, Chest pain Instructions: MyPlate Worksheet: 2,000 Calories Additional Instructions: Untreated sleep apnea leads to high blood pressure in the lungs and the most frequent cause is untreated sleep apnea. Untreated sleep apnea causes cloudy thinking, depression, problems with the rhythm of the heart, headaches, chronic fatigue.....etc. Please discuss with Dr. Onofre having a retitration study for CPAP or BIPAP so that the proper pressure for the mask can be determined. There are many different kinds of masks to try now. Losing weight will definitely help with shortness of breath. I am giving you a prescription for a medications called Effexor that treats anxiety and depress ion, helps with chronic pain and also suppresses appetite. I think it would be a good idea to follow up with the [facility] program run by the microstrategy developer's here at the hospital........I know many people who have been successful with their weight loss program. It is almost impossible to conquer an addiction when you are overwhelmed, anxious and depressed. Food is an addiction for many people. I hope that the Effexor helps with your anxiety/depression. Give it at least a 3-6 month period of taking it daily to see if it helps. I also recommend counselling......it helps to talk these things out with a professionsal. Pending Tests on Discharge: sputum culture Allergies/Adverse Reactions: Allergies cephalexin monohydrate [From Keflex] Allergy (Verified 08/09/18 19:43) Rash heparin Allergy (Verified 08/09/18 19:43) Rash Penicillins Allergy (Verified 08/09/18 19:43) Rash Medications to take at Discharge Vits [Prenatabs FA ] 1 tablet PO DAILY 01/18/15 Gabapentin [Neurontin] 300 mg PO BID 12/11/15 Omeprazole [Prilosec] 40 mg PO BID 12/11/15 Albuterol Inhaler [Ventolin Hfa] 1 - 2 puff INHALATION Q4H PRN PRN 08/13/16 Aspirin 81 mg PO DAILY 08/13/16 Hydroxychloroquine [Plaquenil] 200 mg PO BIDCM 10/17/16 Loratadine [Claritin] 10 mg PO DAILY 08/09/18 Guaifenesin [Mucinex] 1,200 mg PO BID #30 tab 08/10/18 Levofloxacin [Levaquin] 750 mg PO DAILY #5 tab 08/10/18 The following prescriptions were given: Levofloxacin [Levaquin] 750 mg PO DAILY #5 tab Guaifenesin [Mucinex] 1,200 mg PO BID #30 tab Primary Care Physician: Uziel Nieves MD [Primary Care Provider] - Please follow up with your Primary Care Physician in: 5-7 days Test Results: Test results from this visit will be discussed in further detail at your follow- up appointment, if applicable. Please Follow Up With: Dannie Onofre MD When: as needed Proposed Discharge Date: 08/10/18
--- NOTE | 2018-08-10 11:04 | DS.PCM_ITS ---
Discharge Date and Diagnosis Date of Admission: 08/09/18 Date of Discharge: 08/10/18 - Primary Discharge Diagnosis Acute bronchitis with chronic basilar infiltrates on the CXR Respiratory insufficiency with hypoxemia with exertion requiring O2 which she has at home Leukocytosis due to recently being started on Steroids - Secondary Discharge Diagnosis Chronic Problems History of pulmonary embolism (Chronic) Chronic interstitial lung disease (Chronic) Connective tissue disease (Chronic) Super Morbid obesity (Chronic) MARY - non-compliant with CPAP Mild pulmonary hypertension with a right ventricular systolic pressure estimated to be 39 Moderately dilated right ventricle Moderate left atrial enlargement and mild right atrial enlargement Hospital Course and Treatment Imaging Results: 08/10/18 08:41 Echo Complete [ECHO] Routine Dr. Dominick Romero-pulmonary medicine Operations: None Procedures: 2-D Echocardiogram - Interpretation Summary The estimated ejection fraction is 65 %. Normal diastology for age. Moderately dilated right ventricle. The left atrium is moderately enlarged. The right atrium is mildly enlarged. Trivial tricuspid valve insufficiency. Right ventricular systolic pressure estimated to be 39 mmHg. Mild pulmonary hypertension. Compared to echo report dated 10/01/2012, LV function has remained the same, but pt now demonstrates RV enlargement and at least mild pulmonary HTN by echo,. The study was technically difficult. Contrast injection was performed. Summary of Care Provided: The patient is a 37-year-old female with a past medical history of chronic interstitial lung disease, history of pulmonary embolism, super morbid obesity, obstructive sleep apnea (noncompliant with CPAP) and an unspecified connective tissue disease for which she takes Plaquenil (sometimes when she remembers) who presented to the emergency room at [facility] complaining of cough productive of green sputum and shortness of breath aggravated with exertion. She was seen at an urgent care 3 days prior to presenting to the emergency room and was given a Z-Myke and oral steroids with no improvement. CTA of the chest was negative for pulmonary embolism but did show chronic infiltrates in the bases and stable mediastinal lymphadenopathy that has been present since 2015. Vital signs in the emergency department were temperature 97.5, pulse rate 98, blood pressure 158/85, respiratory rate of 28 and she was 93% saturated on room air at rest. She has home O2 and wears this primarily at night because she is not complaint with CPAP. Pulse ox with exertion was 87% on room air. She stated this is not unusual for her. On physical examination by the night hospitalist the lungs were clear to auscultation without wheezes, rhonchi or rales. CBC showed an elevated white blood cell count at 19.2 but the patient has been on oral steroids. Hemoglobin and platelets were within normal limits but the MCV is decreased at 80.9 with an RDW of 14.8. BMP was remarkable for an elevated BUN at 21 with a creatinine of 0.83 and I suspect this is secondary to steroids. Troponin was 0.045 and within normal limits. She was admitted to the hospital for observation. A respiratory panel was negative. A sputum Gram stain showed 3+ gram-positive cocci with 1+ white blood cells. Final sputum culture will not be available for the next 2-3 days. She was given an incentive spirometer and Acapella. She was seen in consultation by Dr. Dominick Romero from pulmonary medicine who agreed with empiric antibiotics pending the results of the sputum culture. He also recommended an echocardiogram which shows mild dilation of the right ventricle with mild pulmonary hypertension with an estimated right ventricular systolic pressure of 39. She also has mild right atrial enlargement and moderate left atrial enlargement. He recommended continuing bronchodilators. He also recommended a re-titration study for CPAP since she has gained 50 pounds over the past year. She was educated about the adverse pulmonary and cardiac complications associated with untreated sleep apnea. She was seen by the special loan officer and counselled re: diet and weight loss. she expressed interest patrick attending the [facility] program at the hospital as an OP and will need a referral from Dr. Nieves. She has a hx of depression in the past and was on zoloft at one point. She admits to being overwhelmed with 3 small children to care for at home and no time for herself. she comforts herself with food. She expressed interest in treatment for depression and she was given a prescription for Effexor XR 75 mg and will take it once daily in the AM. This antidepressant is also associated with weight loss. I also recommended she consider counselling for anxiety/depression PHYSICAL EXAM: GENERAL: alert, oriented X 3, Cooperative, NAD ORAL: moist mucosa, no mucosal lesions NECK: No JVD, supple, trachea midline LUNGS: CTA after a few deep breaths......initially had coarse rales in the bases, no wheezing, symmetric chest expansion, not tachypneic, no conversational dyspnea, no accessory muscle use HEART: RRR, Normal S1 and S2, no rub, no gallop ABDOMEN: soft, NT, ND, BS present, no guarding with palpation, obese EXTREMITIES: no edema, no cyanosis, no calf tenderness SKIN: No rashes, no breakdown NEUROLOGIC: no focal neurologic deficits PSYCH: appropriate, normal affect, pleasant - Physical Exam Vital Signs Temp Pulse Resp BP Pulse Ox 97.8 F 80 20 H 119/80 95 08/10/18 06:16 08/10/18 07:42 08/10/18 07:02 08/10/18 06:16 08/10/18 07:02 Oxygen Delivery Method Room Air Weight: 359 lb 2.128 oz Body Mass Index (BMI) 56.2 Microbiology Past 72 Hours 08/10/18 06:15 Gram Stain - Final Sputum, Expectorated/Coughed 08/10/18 00:45 Respiratory Panel (PCR) - Final Mucosa - Nasopharyngeal Laboratory Tests Past 24 Hrs 08/09/18 08/09/18 08/10/18 20:11 20:11 06:08 WBC 19.2 H 13.5 H RBC 5.03 4.92 Hgb 12.8 12.8 Hct 40.7 39.5 MCV 80.9 L 80.3 L MCH 25.4 L 26.0 L MCHC 31.4 L 32.4 RDW 14.8 H 15.0 H RDW Differential 43.0 43.0 Plt Count 312 330 MPV 9.7 10.0 Immature Gran % (Auto) 0.300 0.200 Neut % (Auto) 80.4 H 74.4 H Lymph % (Auto) 8.1 L 14.4 L [place] % (Auto) 10.9 H 10.7 H Eos % (Auto) 0.1 0.1 Baso % (Auto) 0.2 0.2 Absolute Neuts (auto) 15.4 H 10.0 H Absolute Lymphs (auto) 1.56 1.94 Total Counted Not Reportable Not Reportable Differential Comment SEE COMMENT Diff Path Review May foll Platelet Estimate ADEQUATE RBC Morphology NORM C+C Sodium 137 Potassium 3.8 Chloride 103 Carbon Dioxide 26.0 Anion Gap 8 BUN 21 H Creatinine 0.83 Estim Creat Clear Calc 92.71 Est GFR (MDRD) Af Amer 99 Est GFR (MDRD) Non-Af 82 BUN/Creatinine Ratio 25.3 H Glucose 107 H Calcium 8.4 L Troponin I 0.045 Discharge Activity: - - Avoid exposure to any strong smells such as bleach, cleaning products, strong colognes or perfumes, paint fumes and smoke of any kind. Avoid sudden exposure to cold air because this can cause bronchospasm. You may want to cover your mouth when you go outside in the winter. Avoid exposure to anyone who is sick with a cough or sore throat. Call your doctor if you observe: Fever of 101 or Higher, Dizziness, Fainting spells, Chest pain Home Medications: Medications to take at Discharge Vits [Prenatabs FA ] 1 tablet PO DAILY 01/18/15 Gabapentin [Neurontin] 300 mg PO BID 12/11/15 Omeprazole [Prilosec] 40 mg PO BID 12/11/15 Albuterol Inhaler [Ventolin Hfa] 1 - 2 puff INHALATION Q4H PRN PRN 08/13/16 Aspirin 81 mg PO DAILY 08/13/16 Hydroxychloroquine [Plaquenil] 200 mg PO BIDCM 10/17/16 Loratadine [Claritin] 10 mg PO DAILY 08/09/18 Guaifenesin [Mucinex] 1,200 mg PO BID #30 tab 08/10/18 Levofloxacin [Levaquin] 750 mg PO DAILY #5 tab 08/10/18 Venlafaxine HCl [Effexor Xr] 75 mg PO DAILY #30 cap.er.24h 08/10/18 Following Prescrptions Were Given to Patient: Levofloxacin [Levaquin] 750 mg PO DAILY #5 tab Venlafaxine HCl [Effexor Xr] 75 mg PO DAILY #30 cap.er.24h Guaifenesin [Mucinex] 1,200 mg PO BID #30 tab Primary Care Physician: Uziel Nieves MD [Primary Care Provider] - Please follow up with your Primary Care Physician in: 5-7 days Please Follow Up With: Dannie Onofre MD When: as needed Patient Instructions: MyPlate Worksheet: 2,000 Calories Disposition: Home Minutes spent on discharge:: 35 Patient Condition:: Stable Medical Necessity - Tobacco Use Smoking Status: Former smoker Tobacco Use: Non-smoker Meaningful Use Info Meaningful Use Diagnoses (Choose all that apply): None applicable Code Visit OBSV E&M: 21711 Observation care discharge
--- NOTE | 2018-08-10 15:43 | NURSING ---
pt requested medical records (chest CT from 08/09/2018 and echo from 08/10/2018) be sent to Dr Narinder Kim in [place]. she signed release of medical records and sent to medical records.
[2018-08-10 15:55] LABS: Pathologist Review Reviewed
== END 2018-08-10 15:30 | disposition home or self-care (01) ==
LOC: ED 20:04 → MS2 23:46
PROVIDERS: Admitting Provider Hospitalist; Emergency Provider Emergency Medicine; Family Provider Family Medicine; PCP Family Medicine; Referring Provider Hospitalist; Visit Provider Internal Medicine
DX: J20.9 Acute bronchitis, unspecified (principal); Z86.711 Personal history of pulmonary embolism; E66.01 Morbid (severe) obesity due to excess calories; Z68.43 Body mass index [BMI] 50.0-59.9, adult; Z71.3 Dietary counseling and surveillance; Z79.899 Other long term (current) drug therapy; Z87.891 Personal history of nicotine dependence; J96.11 Chronic respiratory failure with hypoxia; Z99.81 Dependence on supplemental oxygen; Z91.19 Patient's noncompliance with other medical treatment and regimen; J84.9 Interstitial pulmonary disease, unspecified; K21.9 Gastro-esophageal reflux disease without esophagitis; G47.33 Obstructive sleep apnea (adult) (pediatric); G62.9 Polyneuropathy, unspecified; I27.20 Pulmonary hypertension, unspecified; I07.1 Rheumatic tricuspid insufficiency
CPT/HCPCS: 36415; 71275; 80048; 84484; 85025; 87070; 87205; 87633; 93005; 93306; 94640; 94667; 94668; 96365; 96366; 97802; 99218; 99283; J7030; Q9957; Q9967; 90686; A4216; C8929; G0378

== ENCOUNTER 2018-09-28 10:02 | Outpatient (RCR) | payer MEDICAID, SELFPAY ==
[2018-08-10 00:15] VITALS: BMI 56.2
== END 2018-10-07 23:59 ==
LOC: NS 10:02
PROVIDERS: Family Provider Family Medicine; PCP Family Medicine; Referring Provider Internal Medicine; Visit Provider Internal Medicine
DX: E66.01 Morbid (severe) obesity due to excess calories (principal); Z71.3 Dietary counseling and surveillance
CPT/HCPCS: 97802

== ENCOUNTER 2018-10-19 11:30 | Outpatient (RCR) | payer MEDICAID, SELFPAY ==
[2018-08-10 00:15] VITALS: BMI 56.2
== END 2018-10-19 23:59 | disposition home or self-care (01) ==
LOC: NS 11:30
PROVIDERS: Family Provider Family Medicine; PCP Family Medicine; Referring Provider Internal Medicine; Visit Provider Internal Medicine
DX: E66.01 Morbid (severe) obesity due to excess calories (principal); Z71.3 Dietary counseling and surveillance
CPT/HCPCS: 97803

== ENCOUNTER 2019-01-11 20:58 | Emergency (ER) | payer MEDICAID, SELFPAY ==
[2018-08-10 00:15] VITALS: BMI 56.2
[2019-01-11 21:02] VITALS: BP 144/82; PULSE 88; RESP 20; TEMP 36.6; O2SAT 94; BMI 54.8
--- NOTE | 2019-01-11 21:28 | ED.DCSUM_ITS ---
- ER Visit Summary Date of Service: 01/11/19 Chief Complaint: Cough History of Present Illness: The patient is a 38 F who presents with 1 week of a cough with sputum production. No fevers. No runny nose or sore throat. She states she has a history of fibro-, RA, and a lung condition. When asked what lung condition she states you no breathing problems. She has an inhaler at home but has not been using it. Physical Examination: Afebrile vital signs stable Gen: Well-nourished well-developed Head: Normocephalic atraumatic Eyes: Perrl EOMI ENT: TMs clear no rhinorrhea moist mucous membranes Neck: Supple no lymphadenopathy no JVD nontender CVS: Regular rate rhythm no murmurs normal S1-S2 Respiratory: No distress clear to auscultation bilaterally chest nontender Abdomen: Soft nontender nondistended normal bowel sounds no masses Back: Nontender Extremity: Nontender no edema Skin: Normal color no rash Neuro: alert orientated ?3 CN II-XII intact normal strength sensation reflexes gait cerebellar Psych: Normal affect normal mood Emergency Department Course and Treatment: I believe this to be a viral respiratory illness with cough. Patient be discharged home with supportive care follow-up with primary care if needed Impression: 1. Viral respiratory illness with cough This note was generated with [employer] dictation software. It may contain incorrect words, spelling, and punctuation that were not noted in review of the chart prior to signing ED Disposition - Plan for ED Patient: Disposition: Home or Assisted Living Instructions: URI, Viral, No Abx (Adult) Referrals: Luis E Ceja MD [Primary Care Provider] - As Needed
[2019-01-11 21:36] VITALS: O2SAT 97
[2019-01-11 21:50] VITALS: PULSE 79; RESP 18; O2SAT 100
[2019-01-11 21:51] VITALS: BP 138/88; PULSE 81; RESP 18; O2SAT 99
== END 2019-01-11 21:52 | disposition home or self-care (01) ==
PROVIDERS: Emergency Provider Emergency Medicine; Family Provider Family Medicine; PCP Family Medicine
DX: J98.9 Respiratory disorder, unspecified (principal); R05 Cough; M79.7 Fibromyalgia; M06.9 Rheumatoid arthritis, unspecified; Z79.82 Long term (current) use of aspirin; Z79.899 Other long term (current) drug therapy
CPT/HCPCS: 99282

== ENCOUNTER → 2019-06-19 10:52 | Outpatient (CLI) | payer MEDICAID, SELFPAY ==
[2019-06-21 17:02] LABS: HPV APTIMA, High Risk Negative (Negative); HPV Reflexed? YES, CHARGE PATIENT
== END ==
PROVIDERS: Family Provider Family Medicine; PCP Family Medicine; Referring Provider Obstetrics & Gynecology; Visit Provider Obstetrics & Gynecology
DX: Z12.4 Encounter for screening for malignant neoplasm of cervix (principal)
CPT/HCPCS: 87624; 88175; G0145

== ENCOUNTER 2021-06-23 10:24 | Inpatient (IN) | payer MEDICAID, SELFPAY ==
[2021-06-23] VITALS (17 sets, daily range): BP systolic 100–172; BP diastolic 61–96; PULSE 100–123; RESP 10–38; TEMP 36.4–39.8; O2SAT 93–100; BMI 59.9; BMI 59.1
--- NOTE | 2021-06-23 10:36 | RAD_ITS ---
STUDY: X-RAY CHEST REASON FOR EXAM: Female, 40 years old. One-week history of cough and fever with shortness of breath. TECHNIQUE: Single AP portable view of the chest. COMPARISON: Comparison is made with prior study dated 01/18/2015. FINDINGS: EKG electrodes are seen. There is evidence of bibasilar pulmonary infiltrates worse at the left lung base superimposed on a mild degree of CHF. There is blunting of both costophrenic angles. There is moderate cardiac enlargement. Normal mediastinum and yakelin. Normal visualized pulmonary arteries. Normal visualized aortic arch and descending thoracic aorta. Normal visualized thoracic spine. Normal visualized ribs, clavicles, and shoulders. There is no demonstrated abnormality of the visualized soft tissue structures of the upper abdomen. RAD/Chest 1 View (Portable) IMPRESSION: Bibasilar pulmonary infiltrates superimposed on a mild degree of CHF. Cardiomegaly. Electronically Signed: Colby Ponce MD at 11:33 EST , Service support ,
[2021-06-23] MEDS: Acetaminophen 500 MG Tablet 1000 MG PO (12:36)
[2021-06-23] MEDS: guaiFENesin Dm 10 ML UDC PO (13:24)
[2021-06-23 13:32] LABS: Absolute Lymphocyte Count 1.06 X10^3/uL (0.83-4.51); Basophil# 0.08 X10^3/uL; Basophil% 0.4 % (0-1); Eosinophil# 0.02 X10^3/uL; Eosinophils% 0.1 % (0-5); Hematocrit 46.7 % (37-47); Hemoglobin 15.3 g/dL (12.0-15.0); Lymphocyte # 1.06 X10^3/ul (0.83-4.51); Lymphocyte % 5.7 % (19-41); Mean Corp Hgb Conc 32.8 g/dL (32-36); Mean Corpuscular Hgb 28.7 pg (27.0-32.0); Mean Corpuscular Volume 87.6 fL (81-99); Mean Platelet Vol. 10.4 fl (6.2-12.0); Monocyte% 12.9 % (0-10); NRBC Flagged by Analyzer 0 % (0-5); Neutrophil # 14.99 X10^3/uL (2.7-7.7); Neutrophil % 80.4 % (47-70); POSITIVE DIFFERENTIAL YES; Platelet Count 288 K/mm3 (150-450); RBC Distribution Width CV 13.8 % (11.6-14.6); RBC Distribution Width SD 44.3 fl (35.1-43.9); Red Blood Count 5.33 M/mm3 (4.2-5.4); White Blood Count 18.7 K/mm3 (4.4-11.0)
[2021-06-23 13:34] LABS: Differential Indicated SCAN CRITERIA MET
[2021-06-23 13:41] LABS: D-Dimer Quantitative (DVT/PE) 2.57 FEU/ug/m (0.27-0.49)
--- NOTE | 2021-06-23 13:53 | ECHOCS_ITS ---
Reason For Study: Resp. Failure Procedure This was a 2D Doppler, Color Flow transthoracic echocardiogram. The study was technically difficult. Contrast injection was performed. Exam performed portable in ED. Left Ventricle Normal LV size. Mild concentric left ventricular hypertrophy. Left ventricular systolic function is normal. The estimated ejection fraction is 60 %. No regional wall motion abnormalities noted. Right Ventricle Normal right ventricle. Normal systolic function. Atria Normal left atrium. Normal right atrium. Tricuspid Valve Normal tricuspid valve. Aortic Valve The aortic valve is not well visualized. Pulmonic Valve Normal pulmonic valve. Great Vessels Normal aortic root. The pulmonary artery is normal size. Normal inferior vena cava. Pericardium/Pleural No pericardial effusion. Medication Diluted definity 2ml given slow IV push to enhance endocardial definition. MMode/2D Measurements & Calculations LVIDd: 4.6 cm IVSd: 1.5 cm LAV(MOD-sp4): 62.6 ml LVIDs: 3.9 cm LVPWd: 1.3 cm FS: 15.1 % LA A4 area: 22.4 cm2 Doppler Measurements & Calculations MV E max brittany: 91.0 cm/sec Ao V2 max: 187.1 cm/sec LV V1 max: 143.7 cm/sec Ao max P.0 mmHg LV V1 max P.3 mmHg PA V2 max: 114.5 cm/sec ECHO/Echo Complete W/ Contrast Interpretation Summary Normal LV size. Left ventricular systolic function is normal. The estimated ejection fraction is 60 %. Mild concentric left ventricular hypertrophy. Contrast injection was performed. Ordering Physician: Anil Almaraz Referring Physician: Luis E Ceja Performed By: Bob Knight RCS
--- NOTE | 2021-06-23 13:54 | PCM.HP.STD ---
HPI - General HPI Narrative CHANDRIKA PERKINS, is a 40 F who presents with SOB. SOB today. On chronic oxygen. Worse today. Presented to the emergency room and had a chest x-ray that was concerning for pneumonia. Rapid COVID-19 was negative, PCR is currently pending. Patient has had some subjective chills and is coughing but with scant sputum production. Patient has been vaccinated for COVID-19 but has yet to receive her booster. She has received the CricHQ vaccine. COUNT INCLUDES THE [facility] Medical History (Updated 06/23/21 @ 14:[address] Anil Almaraz DO) Chronic interstitial lung disease Connective tissue disease History of pulmonary embolism Morbid obesity Home Medications gabapentin 300 mg PO BID 12/11/15 [History Last Taken 01/11/19] omeprazole 40 mg PO BID 12/11/15 [History Last Taken 01/11/19] albuterol sulfate [Ventolin HFA] 1 - 2 puff INHALATION Q4H PRN PRN 08/13/16 [History Last Taken 1 Day Ago ~01/10/19] aspirin 81 mg PO DAILY 08/13/16 [History Last Taken 01/11/19] hydroxychloroquine 200 mg PO BIDCM 10/17/16 [History Last Taken 01/11/19] loratadine [Allergy Relief (loratadine)] 10 mg PO DAILY 08/09/18 [History Last Taken 01/11/19] meloxicam 15 mg PO DAILY 06/23/21 [History Last Taken 06/22/21] mycophenolate mofetil 500 mg PO 4X/DAY 06/23/21 [History Last Taken 06/22/21] venlafaxine 150 mg PO DAILY 06/23/21 [History Last Taken 06/22/21] Allergy/AdvReac Type Severity Reaction Status Date / Time cephalexin monohydrate Allergy Rash Verified 06/23/21 10:31 [From Keflex] heparin Allergy Rash Verified 06/23/21 10:31 Penicillins Allergy Rash Verified 06/23/21 10:31 Family History (Updated 06/23/21 @ 13:[address] Anil Almaraz DO) Other ILD (interstitial lung disease) Social History Smoking Status: Former smoker ROS ROS Narrative Patient denies any edema nor any weight change. All review of systems were negative except as mentioned above in the history of present illness and the other review of systems. Vital Signs Vital Signs Vital Signs: 06/23/21 10:25 06/23/21 10:28 06/23/21 10:31 Temperature 39.8 C H 37.5 C H Temperature Source Temporal Oral Pulse Rate 115 H 113 H Respiratory Rate 24 H 26 H Respiratory Effort Short of Breath Respiratory Depth Deep Respiratory Pattern Tachypnea Blood Pressure 172/72 H Blood Pressure Mean 105 Pulse Ox 96 98 Oxygen Delivery Method Nasal Cannula Nasal Cannula Nasal Cannula Oxygen Flow Rate (L/min) 2 2 2 06/23/21 11:31 06/23/21 12:21 06/23/21 12:32 Temperature 37.7 C H 37.3 C H Temperature Source Oral Oral Pulse Rate 116 H 119 H 123 H Respiratory Rate 29 H 34 H 38 H Respiratory Effort Respiratory Depth Respiratory Pattern Blood Pressure 164/96 H 145/73 H 150/86 H Blood Pressure Mean 118 97 107 Pulse Ox 98 95 94 Oxygen Delivery Method Nasal Cannula Nasal Cannula Nasal Cannula Oxygen Flow Rate (L/min) 2 2 2 06/23/21 13:24 Temperature 37.5 C H Temperature Source Oral Pulse Rate 117 H Respiratory Rate 24 H Respiratory Effort Respiratory Depth Respiratory Pattern Blood Pressure 100/74 Blood Pressure Mean 82 Pulse Ox 95 Oxygen Delivery Method Nasal Cannula Oxygen Flow Rate (L/min) 2 Weight Weight: 168.5 kg Body Mass Index (BMI) 59.9 Physical Exam Const alert and no apparent distress General Appearance: cooperative HEENT normocephalic, head/scalp atraumatic, hearing grossly normal bilaterally and moist oral mucous membranes Resp normal respiratory effort, no retractions, no use of accessory muscles and clear to auscultation bilaterally Cardio regular rate, regular rhythm, S1 normal heart sound and S2 normal heart sound GI normal to inspection, nondistended, normoactive bowel sounds, soft to palpation, non-tender and non-distended Extremity normal to inspection and full ROM Skin no rashes or lesions noted Neuro oriented x3 Sensorium / Orientation: awake, alert and oriented to person Psych affect normal Results Lab / Micro Data Result Diagrams: 06/23/21 10:45 Labs: Laboratory Results - last 24 hr 06/23/21 10:45: WBC 18.7 H, RBC 5.33, Hgb 15.3 H, Hct 46.7, MCV 87.6, MCH 28.7, MCHC 32.8, RDW Std Deviation 44.3 H, RDW Coeff of Ana 13.8, Plt Count 288, MPV 10.4, Immature Gran % (Auto) 0.500, Neut % (Auto) 80.4 H, Lymph % (Auto) 5.7 L, [place] % (Auto) 12.9 H, Eos % (Auto) 0.1, Baso % (Auto) 0.4, Absolute Neuts (auto) 15.0 H, Absolute Lymphs (auto) 1.06, Nucleated RBC % 0 06/23/21 10:45: D-Dimer Quant (PE/DVT) 2.57 H* Micro: Microbiology 06/23/21 11:02 Nasal Secretion SARS-CoV-2 Antigen (Rapid) - Final Radiology Impression Chest X-Ray 06/23/21 10:36 IMPRESSION: Bibasilar pulmonary infiltrates superimposed on a mild degree of CHF. Cardiomegaly. Electronically Signed: Colby Ponce MD at 11:33 EST , Service support , Assessment & Plan Assessment/Plan (1) Acute and chronic respiratory failure with hypoxia: (2) Pneumococcal pneumonia: QUALIFIERS: Laterality: bilateral Lung location: lower lobe of lung Qualified Code(s): J13 - Pneumonia due to Streptococcus pneumoniae (3) History of pulmonary embolism: (4) Chronic interstitial lung disease: (5) Connective tissue disease: (6) Morbid obesity: PLAN: 1. Acute on chronic hypoxic respiratory failure Worse today. COVID-19 PCR is pending. Patient has been fully vaccinated minus the booster with the CricHQ vaccine. Concern is for bacterial pneumonia versus exacerbation chronic ILD versus CHF Start broad-spectrum antibiotics with ceftriaxone and azithromycin Check sputum culture, strep and Legionella antigens Will check a CTA of her chest as her D-dimer is elevated patient does have a history of PE. Patient is not currently on anticoagulation. We will start therapeutic enoxaparin. If that is negative for PE then would recommend changing to VTE prophylactic dosing. Check BNP as well as 2D echocardiogram. Clinically, the patient does not appear to be in CHF. 2. Suspected pneumococcal pneumonia Treatment as above 3. ILD Likely due to patient's history of lupus Hold mycophenolate in light of what may be infectious pneumonia 4. Morbid obesity BMI greater than 60 Complicates overall care and recovery. 5. VTE prophylaxis: Patient will be currently anticoagulated. Charges/Coding Visit Charges Inpatient E&M: 42999 Init Hosp L3
[2021-06-23 14:31] LABS: BNP,B-Type NATRIURETIC PEPTIDE 276.2 pg/mL (0-100)
--- NOTE | 2021-06-23 14:40 | EDS_ITS ---
HPI HPI - URI History of Present Illness Chief Complaint: Shortness of Breath Informant: patient Onset/Context/Timing Onset: Days Context: Gradual Onset Timing: Continuous Current Severity: Mild Maximum Severity: Mild Associated Symptoms Associated Symptoms: Positive for Nasal Congestion, Shortness of Breath and Nonproductive cough Narrative Narrative: 40-year-old female was vaccinated with Pfizer x2. States for the l ast 8 days she has had cough shortness of breath. She quit smoking 20 years ago. Prior similar symptoms: No Recent Illness/Hospitalization: No ROS ROS ED ROS Narrative Cough, shortness of breath. Review of Systems ROS Unobtainable: Denies due to encephalopathy Constitutional Constitutional ED: Denies fever(s) Eyes Eyes: Denies change in vision ENT ENT ED: Denies ear pain Cardiovascular Cardiovascular: Denies chest pain Respiratory/Chest Respiratory/Chest: Reports cough and dyspnea Gastrointestinal Gastrointestinal: Denies abdominal pain, diarrhea, nausea or vomiting Genitourinary Genitourinary ED: Denies dysuria Musculoskeletal Musculoskeletal: Denies myalgias Integumentary Denies rash Neurologic Neurologic: Denies headache(s) Psychiatric Psychiatric: Denies depression Endocrine Endocrinology: Denies polyuria Hematologic/Lymphatic Hematologic/Lymphatic: Denies easy bruising Allergic/Immunologic Allergic/Immunologic ED: Denies urticaria PFSH PFSH Medical History Chronic interstitial lung disease Connective tissue disease History of pulmonary embolism Morbid obesity Home Medications gabapentin 300 mg PO BID 12/11/15 [History Last Taken 06/22/21] omeprazole 40 mg PO BID 12/11/15 [History Last Taken 06/22/21] albuterol sulfate [Ventolin HFA] 1 - 2 puff INHALATION Q4H PRN PRN 08/13/16 [History Last Taken 06/23/21] aspirin 81 mg PO DAILY 08/13/16 [History Last Taken 06/22/21] hydroxychloroquine 200 mg PO BIDCM 10/17/16 [History Last Taken 06/22/21] loratadine [Allergy Relief (loratadine)] 10 mg PO DAILY 08/09/18 [History Last Taken 06/22/21] meloxicam 15 mg PO DAILY 06/23/21 [History Last Taken 06/22/21] mycophenolate mofetil 500 mg PO 4X/DAY 06/23/21 [History Last Taken 06/22/21] venlafaxine 150 mg PO DAILY 06/23/21 [History Last Taken 06/22/21] Allergy/AdvReac Type Severity Reaction Status Date / Time cephalexin monohydrate Allergy Rash Verified 06/23/21 10:31 [From Keflex] heparin Allergy Rash Verified 06/23/21 10:31 Penicillins Allergy Rash Verified 06/23/21 10:31 Family History Other ILD (interstitial lung disease) Social History Smoking Status: Former smoker EXAM Physical Exam Narrative Exam Narrative: 40-year-old female. Vital signs stable. Pulse ox 95% on 2 L. She is on chronic O2. She is nontoxic. H EENT exam unremarkable. Neck nontender. Lungs clear to auscultation. Heart regular rhythm no murmur. Rate about 100. Abdomen soft nontender nondistended normal bowel sounds no peritoneal signs. Obese. Moving all 4 extremities. Calves are nontender without edema or cords. Neurologically she is awake and alert with no focal motor deficits. Const Vital Signs: 06/23/21 10:25 06/23/21 10:28 06/23/21 10:31 Temperature 103.7 F H 99.5 F H Temperature Source Temporal Oral Pulse Rate 115 H 113 H Respiratory Rate 24 H 26 H Respiratory Effort Short of Breath Respiratory Depth Deep Respiratory Pattern Tachypnea Blood Pressure 172/72 H Blood Pressure Mean 105 Pulse Ox 96 98 Oxygen Delivery Method Nasal Cannula Nasal Cannula Nasal Cannula Oxygen Flow Rate (L/min) 2 2 2 06/23/21 11:31 06/23/21 12:21 06/23/21 12:32 Temperature 99.8 F H 99.2 F H Temperature Source Oral Oral Pulse Rate 116 H 119 H 123 H Respiratory Rate 29 H 34 H 38 H Respiratory Effort Respiratory Depth Respiratory Pattern Blood Pressure 164/96 H 145/73 H 150/86 H Blood Pressure Mean 118 97 107 Pulse Ox 98 95 94 Oxygen Delivery Method Nasal Cannula Nasal Cannula Nasal Cannula Oxygen Flow Rate (L/min) 2 2 2 06/23/21 13:24 Temperature 99.5 F H Temperature Source Oral Pulse Rate 117 H Respiratory Rate 24 H Respiratory Effort Respiratory Depth Respiratory Pattern Blood Pressure 100/74 Blood Pressure Mean 82 Pulse Ox 95 Oxygen Delivery Method Nasal Cannula Oxygen Flow Rate (L/min) 2 Positive well nourished, well developed and obese; Negative for cachectic or contractures General Appearance ED: well developed and NAD; Negative for cachectic, contractures, cyanotic, diaphoretic or pallor Nutritional Appearance: obese; Negative for cachectic HEENT Reports moist mucous membranes normocephalic and atraumatic External Ear: external ears normal Eyes PERRL and EOMs intact bilaterally Neck no lymphadenopathy, supple, no meningeal signs and no JVD General: Negative for anterior neck swelling or lymphadenopathy Resp normal respiratory effort and clear to auscultation bilaterally Auscultation: Negative for rales, rhonchi or wheezes Cardio S1 normal heart sound, S2 normal heart sound and no murmurs Rate: regular rate Rhythm: regular rhythm GI non-tender, non-distended and no masses Inspection: Negative for abdominal distention Auscultation: normoactive bowel sounds Palpation: soft; Negative for tender or guarding Back/Spine no CVA tenderness and normal ROM General Back: Negative for CVA tenderness Extremity normal to inspection and full ROM General Extremety ED: Negative for cyanosis or tenderness General Extremity: Negative for cyanosis Neuro oriented x3 Sensorium / Orientation: alert, oriented to person, oriented to place and oriented to time Psych mental status grossly normal Attitude: No agitated Mood & Affect: Negative for depressed or tearful Skin General Skin Exam: Negative for jaundice or pallor Lesions: no lesions Rashes: no rashes and No rashes noted MDM MDM MDM Narrative Medical decision making narrative: 40-year-old female with URI symptoms possibly Covid. Undergoing work-up. Both the rapid and PCR Covid were negative. CTA showed no pulmonary emboli but possible infiltrates versus chronic lung disease. She was started on IV Levaquin because of her allergies to both cephalosporins and penicillin. I have already spoken the hospitalist has evaluated patient she will be admitted. Lab Data Attestation: I reviewed the patient's lab results. Lab results narrative: CBC shows elevated white count 18.7. Hemoglobin 15. D- dimer is elevated 2.57 and BNP is 276. Repeat exam patient is doing well at 330. I have already spoken to the hospitalist she will be admitted. Her CTA of her chest showed no pulmonary emboli. Labs: Laboratory Results - last 24 hr 06/23/21 06/23/21 06/23/21 10:45 10:45 11:50 WBC 18.7 H RBC 5.33 Hgb 15.3 H Hct 46.7 MCV 87.6 MCH 28.7 MCHC 32.8 RDW Std Deviation 44.3 H RDW Coeff of Ana 13.8 Plt Count 288 MPV 10.4 Immature Gran % (Auto) 0.500 Neut % (Auto) 80.4 H Lymph % (Auto) 5.7 L [place] % (Auto) 12.9 H Eos % (Auto) 0.1 Baso % (Auto) 0.4 Absolute Neuts (auto) 15.0 H Absolute Lymphs (auto) 1.06 Nucleated RBC % 0 Differential Comment COMMENT Diff Path Review May foll D-Dimer Quant (PE/DVT) 2.57 H* COVID-19 ([facility]) Not Detected Radiography Diagnostic Testing: Clinical Impression(s) from Imaging Studies Chest X-Ray 06/23/21 10:36 IMPRESSION: Bibasilar pulmonary infiltrates superimposed on a mild degree of CHF. Cardiomegaly. Electronically Signed: Colby Ponce MD at 11:33 EST , Service support , Discharge Plan Dx/Rx/DC Orders Clinical Impression: Hypoxia, Acute and chronic respiratory failure with hypoxia Disposition Disposition: Acute Care [facility]
--- NOTE | 2021-06-23 15:00 | CT_ITS ---
STUDY: CTA CHEST REASON FOR EXAM: Female, 40 years old. Elevated d-dimer RADIATION DOSAGE (If Supplied By Facility): CTDIvol = ( 15.04 ) mGy, DLP = ( 472.07 ) mGycm TECHNIQUE: The examination was performed with the intravenous administration of IV 100mL Isovue-370. Post-processing of the angiographic images was performed, with multiplanar reformation and 3D reconstruction. Individualized dose optimization techniques were used for this CT. COMPARISON: Comparison is made with prior chest radiographs done earlier today as well as prior CT scan dated 08/09/2018. FINDINGS: Small bilateral axillary lymph nodes. Normal enhancement of the main pulmonary artery and right and left pulmonary arteries. Normal enhancement of the bilateral peripheral pulmonary arteries. There is no demonstrated pulmonary embolism. Normal thoracic aorta and visualized great vessels. There is no demonstrated aortic dissection. Normal heart and pericardium. Mildly enlarged lymph nodes in the aortopulmonary window and precarinal space. Normal hilar regions. Normal visualized trachea and bronchi. The lungs are well expanded. Bilateral pulmonary infiltrates worse in the lower lobes and more prominent on the right side. There is evidence of a 1.6 cm x 1.6 cm nodule in the anterior aspect of the right upper lobe. CT scan follow-up in 3 months is recommended. Normal pleura. Normal chest wall structures. Normal osseous structures. The patient is status post cholecystectomy. Small hiatal hernia. CT/CTA Chest W/WO Contrast IMPRESSION: No evidence of pulmonary emboli. Bilateral pulmonary infiltrates as described. Mildly enlarged mediastinal lymph nodes. 1.6 cm nodular density in the anterior aspect of the right upper lobe described. Three-month follow-up CT scan is recommended. Electronically Signed: Colby Ponce MD at 15:22 EST , Service support ,
--- NOTE | 2021-06-23 15:26 | PCM.HOSP.N ---
Hospitalist Note CTPA resulted w/ no evidence of pulmonary emboli, bilateral pulmonary infiltrates, mildly enlarged mediastinal lymph nodes. 1.6 cm nodular density in the anterior aspect of the right upper lobe described w/ recommended following [address] scan. COVID PCR negative.
--- NOTE | 2021-06-23 16:00 | EKG12_ITS ---
Test Reason : ADMISSION Blood Pressure : / mmHG Vent. Rate : 113 BPM Atrial Rate : 113 BPM P-R Int : 160 ms QRS Dur : 100 ms QT Int : 330 ms P-R-T Axes : 055 -43 071 degrees QTc Int : 452 ms Sinus tachycardia Left axis deviation Voltage criteria for left ventricular hypertrophy Poor R wave progression Anterior NM, age undetermined, cannot be excluded Abnormal ECG Confirmed by REY REYNA, TOMAS ([id number]), story editor STEVE HART ([id number]) on 06/25/2021 10:38:24 AM Referred By: PRASANTH Confirmed By:TOMAS LE MD
[2021-06-23 16:10] LABS: Anion Gap 5 (5-15); BUN 11 mg/dL (7-18); Calcium,Total 9.2 mg/dL (8.5-10.1); Chloride 104 mmol/L (98-107); Creatinine, Serum 0.85 mg/dL (0.55-1.02); EST Glomerular Filtration Rate 78 mL/min (>60); Est Glom Filt Rate - Afr Amer 95 mL/min (>60); Estimated Creatinine Clearance 81.54 ml/min; Glucose 90 mg/dL (74-106); Potassium 3.6 mmol/L (3.5-5.1); Sodium Level 138 mmol/L (136-145)
[2021-06-23] MEDS: levoFLOXacin IV 500 MG/100 ML BAG 100 MG IV (16:18)
--- NOTE | 2021-06-23 19:28 | PCS.PANDOC ---
PANDEMIC DOCUMENTATION INITIATED: Date: 02/22/2021 Time: 190
[2021-06-23] MEDS: Pantoprazole Sodium 40 MG Tablet PO (20:18)
[2021-06-23] MEDS: Gabapentin 300 MG Capsule PO (20:18)
[2021-06-23] MEDS: Enoxaparin 100 MG/ML Syringe 170 MG SC (20:18)
[2021-06-23] MEDS: Hydroxychloroquine 200 MG Tablet PO (20:18)
[2021-06-24] VITALS (16 sets, daily range): BP systolic 103–147; BP diastolic 68–83; PULSE 84–114; RESP 10–31; TEMP 36.6–37.1; O2SAT 93–96
[2021-06-24 01:25] LABS: Magnesium 2.1 mg/dL (1.6-2.6)
[2021-06-24] MEDS: Enoxaparin 100 MG/ML Syringe 170 MG SC (05:11)
[2021-06-24 06:59] LABS: Absolute Lymphocyte Count 1.95 X10^3/uL (0.83-4.51); Absolute Neutrophil Count 24.4 X10^3/uL (2.0-7.7); Basophil# 0.08 X10^3/uL; Basophil% 0.3 % (0-1); Hematocrit 43.9 % (37-47); Hemoglobin 14.5 g/dL (12.0-15.0); Lymphocyte # 1.95 X10^3/ul (0.83-4.51); Lymphocyte % 6.4 % (19-41); Mean Corpuscular Hgb 29.1 pg (27.0-32.0); Mean Corpuscular Volume 88.2 fL (81-99); Mean Platelet Vol. 10.1 fl (6.2-12.0); Monocyte# 3.64 X10^3/uL; NRBC Flagged by Analyzer 0 % (0-5); Neutrophil # 24.43 X10^3/uL (2.7-7.7); Neutrophil % 80.5 % (47-70); POSITIVE COUNT YES; POSITIVE DIFFERENTIAL YES; Platelet Count 295 K/mm3 (150-450); RBC Distribution Width CV 14.3 % (11.6-14.6); RBC Distribution Width SD 46.1 fl (35.1-43.9); Red Blood Count 4.98 M/mm3 (4.2-5.4); White Blood Count 30.3 K/mm3 (4.4-11.0)
[2021-06-24 07:06] LABS: Differential Indicated SCAN CRITERIA MET
[2021-06-24 07:22] LABS: ALB/GLOB Ratio 0.6 RATIO (0.9-2.4); AST(SGOT) 16 U/L (15-37); Alanine Aminotransfer ALT/SGPT 22 U/L (13-56); Albumin, Serum 3.1 g/dL (3.2-5.0); Alkaline Phosphatase 85 U/L (45-117); Anion Gap 10 (5-15); BUN 12 mg/dL (7-18); BUN/Creat Ratio 15.5 RATIO (10-20); Calcium,Total 8.5 mg/dL (8.5-10.1); Chloride 101 mmol/L (98-107); Creatinine, Serum 0.78 mg/dL (0.55-1.02); EST Glomerular Filtration Rate 87 mL/min (>60); Est Glom Filt Rate - Afr Amer 105 mL/min (>60); Estimated Creatinine Clearance 88.85 ml/min; Globulin 5.2 g/dL (2.2-4.2); Glucose 87 mg/dL (74-106); Potassium 3.7 mmol/L (3.5-5.1); Protein, Total 8.3 g/dL (6.4-8.2); Sodium Level 135 mmol/L (136-145)
[2021-06-24] MEDS: Venlafaxine XR 150 MG Capsule PO (10:12)
[2021-06-24] MEDS: Gabapentin 300 MG Capsule PO ×2 (10:12→20:35)
[2021-06-24] MEDS: Loratadine 10 MG Tablet PO (10:12)
[2021-06-24] MEDS: Pantoprazole Sodium 40 MG Tablet PO ×2 (10:12→20:35)
[2021-06-24] MEDS: Hydroxychloroquine 200 MG Tablet PO ×2 (10:12→18:12)
[2021-06-24] MEDS: Aspirin 81 MG TAB.CHEW PO (10:12)
[2021-06-24] MEDS: Prenatal Vits Tablet 1 TABLET PO (10:12)
[2021-06-24] MEDS: levoFLOXacin IV 750 MG/150 ML BAG 100 MG IV (10:15)
[2021-06-24] MEDS: 0.9% Saline Lock 10 ML Syringe IV ×2 (10:22→18:00)
--- NOTE | 2021-06-24 12:21 | PN.HOSP_ITS ---
Documented by User: Rae Ortiz CIVIL LITIGATION ATTORNEY-C 06/24/21 12:31 Subjective Subjective Patient seen and examined. Patient lying in bed no distress noted. Patient currently on 4 L nasal cannula, baseline 2 L nasal cannula at home. Objective Data Objective Data Vital Signs: Vital Signs Temp Pulse Resp BP Pulse Ox 98.1 F 84 24 H 147/82 H 96 06/24/21 10:04 06/24/21 10:04 06/24/21 10:04 06/24/21 10:04 06/24/21 10:04 Oxygen Flow Rate (L/min) 4 Oxygen Delivery Method Nasal Cannula Weight: 366 lb 6.532 oz Body Mass Index (BMI) 59.1 Intake & Output: Intake and Output for Last 24 Hours 06/22/21 06/23/21 06/24/21 23:59 23:59 23:59 Intake Total 100 / 100 240 / 240 Output Total 300 / 300 Balance 100 / 100 -60 / -60 Lab / Micro Data Result Diagrams: 06/24/21 06:20 06/24/21 06:20 Labs: Laboratory Results - last 24 hr 06/23/21 10:45: WBC 18.7 H, RBC 5.33, Hgb 15.3 H, Hct 46.7, MCV 87.6, MCH 28.7, MCHC 32.8, RDW Std Deviation 44.3 H, RDW Coeff of Ana 13.8, Plt Count 288, MPV 10.4, Immature Gran % (Auto) 0.500, Neut % (Auto) 80.4 H, Lymph % (Auto) 5.7 L, [place] % (Auto) 12.9 H, Eos % (Auto) 0.1, Baso % (Auto) 0.4, Absolute Neuts (auto) 15.0 H, Absolute Lymphs (auto) 1.06, Nucleated RBC % 0, Differential Comment COMMENT, Diff Path Review November06/23/21 10:45: D-Dimer Quant (PE/DVT) 2.57 H* 06/23/21 10:45: Sodium 138, Potassium 3.6, Chloride 104, Carbon Dioxide 29.0, Anion Gap 5, BUN 11, Creatinine 0.85, Estim Creat Clear Calc 81.54, Est GFR (MDRD) Af Amer 95, Est GFR (MDRD) Non-Af 78, BUN/Creatinine Ratio 13.0, Glucose 90, Calcium 9.2 06/23/21 10:45: Magnesium 2.1 06/23/21 11:50: COVID-19 (THELMA) Not Detected 06/23/21 14:03: B-Natriuretic Peptide 276.2 H 06/24/21 06:20: WBC 30.3 H*, RBC 4.98, Hgb 14.5, Hct 43.9, MCV 88.2, MCH 29.1, MCHC 33.0, RDW Std Deviation 46.1 H, RDW Coeff of Ana 14.3, Plt Count 295, MPV 10.1, Immature Gran % (Auto) 0.800, Neut % (Auto) 80.5 H, Lymph % (Auto) 6.4 L, [place] % (Auto) 12.0 H, Eos % (Auto) 0.0, Baso % (Auto) 0.3, Absolute Neuts (auto) 24.4 H, Absolute Lymphs (auto) 1.95, Nucleated RBC % 0, Diff Path Review November06/24/21 06:20: Sodium 135 L, Potassium 3.7, Chloride 101, Carbon Dioxide 24.0, Anion Gap 10, BUN 12, Creatinine 0.78, Estim Creat Clear Calc 88.85, Est GFR (MDRD) Af Amer 105, Est GFR (MDRD) Non-Af 87, BUN/Creatinine Ratio 15.5, Glucose 87, Calcium 8.5, Total Bilirubin 1.30 H, AST 16, ALT 22, Alkaline Phosphatase 85, Total Protein 8.3 H, Albumin 3.1 L, Globulin 5.2 H, Albumin/Globulin Ratio 0.6 L Micro: Microbiology 06/23/21 20:15 Mucosa - Nasopharyngeal Respiratory Panel (PCR) - Final Rhinovirus 06/24/21 01:35 Urine, Clean Catch Legionella Antigen - Final 06/24/21 01:35 Urine, Clean Catch Streptococcus pneumoniae Antigen (M - Final 06/23/21 11:02 Nasal Secretion SARS-CoV-2 Antigen (Rapid) - Final Radiography Diagnostic Testing: Radiology Impression Echocardiogram 06/23/21 13:53 Interpretation Summary Normal LV size. Left ventricular systolic function is normal. The estimated ejection fraction is 60 %. Mild concentric left ventricular hypertrophy. Contrast injection was performed. Ordering Physician: Anil Almaraz Referring Physician: Luis E Ceja Performed By: Bob Knight RCS Chest CTA 06/23/21 15:00 IMPRESSION: No evidence of pulmonary emboli. Bilateral pulmonary infiltrates as described. Mildly enlarged mediastinal lymph nodes. 1.6 cm nodular density in the anterior aspect of the right upper lobe described. Three-month follow-up CT scan is recommended. Electronically Signed: Colby Ponce MD at 15:22 EST , Service support , Physical Exam Const alert, oriented x3 and no apparent distress HEENT head/scalp atraumatic and moist oral mucous membranes Head and Scalp: normocephalic Eyes conjunctivae normal and no scleral icterus Neck full ROM and supple General: trachea midline Resp normal respiratory effort Effort and Inspection: able to speak in complete sentences, symmetric chest movement and tachypneic Auscultation: diminished lung sounds Cardio regular rate, regular rhythm, S1 normal heart sound and S2 normal heart sound GI normal to inspection, nondistended, normoactive bowel sounds, soft to palpation and non-tender Extremity normal to inspection, full ROM and no clubbing, cyanosis or edema Peripheral Pulses: Yes pulses 2+ throughout Skin no rashes or lesions noted, no wounds and skin turgor normal Neuro oriented x3, moves all extremities, no focal motor deficits and no sensory deficits noted Sensorium / Orientation: awake and alert Psych affect normal Assessment & Plan Assessment/Plan (1) Acute and chronic respiratory failure with hypoxia: (2) Pneumococcal pneumonia: QUALIFIERS: Laterality: bilateral Lung location: lower lobe of lung Qualified Code(s): J13 - Pneumonia due to Streptococcus pneumoniae PLAN: Patient is a 40-year-old female who originally presented with increasing shortness of breath and increased oxygen needs. Patient was noted to have bilateral infiltrates suspected pneumococcal pneumonia as well as patient tested positive for rhinovirus. 1. Acute on chronic hypoxic respiratory failure secondary to rhinovirus and suspected pneumococcal pneumonia. -Covid PCR negative, respiratory panel positive for rhinovirus -Continue ceftriaxone and azithromycin -Strep and Legionella antigen negative -CTA negative for PE -Since CTA negative for PE will transition patient from therapeutic Lovenox to DVT prophylaxis dosing 2. ILD -Secondary to patient's history of lupus -Hold mycophenolate due to suspicion for infectious pneumonia 3. Morbid obesity BMI 55.0-59.9 -Complicates overall care -Lifestyle modification encouraged DVT prophylaxis-subcu Lovenox This patient was seen by LISANDRO Arshad under the supervision of Dr. Green. Documented by User: Dr. Angi Green MD 06/24/21 15:44 Objective Data Lab / Micro Data Result Diagrams: 06/24/21 06:20 06/24/21 06:20 Charges/Coding Addendum Addendum: Patient seen by Rae MCMAHON under my supervision Patient seen and examined. She was admitted with a complaint of shortness of breath. She is usually on 2 L of oxygen at home but her shortness of breath worsened so she came into the ED. Chest x-ray was concerning for pneumonia and Covid PCR as well as antigen test were negative. She is being managed for acute on chronic hypoxic respiratory failure due to community-acquired pneumonia. Patient still complains of shortness of breath but thinks is getting a bit better. She is on 4 L of oxygen. She had no other complaints and review of systems otherwise negative. O/E: Const alert and no apparent distress General Appearance: cooperative, super morbid obesity HEENT normocephalic, head/scalp atraumatic, hearing grossly normal bilaterally and moist oral mucous membranes Resp diminished breath sounds bibasally, no wheezes, no crackles. Cardio regular rate, regular rhythm, S1 normal heart sound and S2 normal heart sound GI normal to inspection, nondistended, normoactive bowel sounds, soft to palpation, non-tender and non-distended Extremity normal to inspection and full ROM Skin no rashes or lesions noted Neuro oriented x3 Sensorium / Orientation: awake, alert and oriented to person Psych affect normal Chest x-ray showed bibasilar pulmonary infiltrates superimposed on a mild degree of CHF. She is on IV ceftriaxone and azithromycin. CT of the chest was negative for PE. CT of the chest showed bilateral pulmonary infiltrates but no evidence of PE and a 1.6 cm nodular density in the anterior aspect of the right upper lobe with a 3-month follow-up recommended. Her proBNP was 276.2 which in light of his super morbid obesity, might be low. I therefore think patient will benefit from diuresis. Now on IV Levaquin. Continue Lovenox 40 mg every 12 for DVT prophylaxis. Rest as per Rae Ortiz CIVIL LITIGATION ATTORNEY-C under my supervision Visit Charges Inpatient E&M: 05728 Subs Hosp L3
--- NOTE | 2021-06-24 15:38 | CASEMGMT ---
MIK SAMPSON NOTE: TC to Medical services co and spoke w/Casandra. She confirms pt's current O2 orders are for 2 L/M w/exertion and @ HS. Sheila BSN MIK CM
--- NOTE | 2021-06-24 16:31 | CASEMGMT ---
RN CM Assessment Introduced role of RN CM to patient.? Patient is alert, oriented and able?to participate in RN CM Assessment. ?Care providers, pharmacy, and demographics verified. Admit Dx: PNA. IP- 12.15.21 Re-Admit: No Barriers/Issues: None PCP: Luis E Ceja Specialists: Jacinta Franco-CCDonald Preferred Pharmacy: [facility] Insurance: [facility] Rx Benefit:?Yes LNOK: Carroll Chisholm LW/HPOA: None. Information provided, patient declines completion on this admission. Aware can return as an outpatient with social work job titles dept. Living Arrangements:?Lives with and 3 kids in a mobile home, 3-4 steps to enter home. ADL?s: Independent with ambulation and ADLs Transportation: Both patient drive DME: Cpap- [employer]. States has equipment for O2 bleed in but does not use CPAP. Home O2-[employer]. 2lpm W/exertion and 2lpm at HS. [place]. HHC: None SNF: None Goal: Home and does not think will have any additional needs. Aware RNCM will continue to follow should any needs arise. DC PLAN: Home, f/u for possible Home Oxygen order change. Patient has portable tank at bedside with Oxygen in it. Also, has home refill system. ALEXEI Frank
[2021-06-24] MEDS: Furosemide 40 MG/4 ML Vial IV (17:59)
[2021-06-24] MEDS: Enoxaparin 40 MG/0.4 ML Syringe SC (18:12)
[2021-06-25] VITALS (7 sets, daily range): BP systolic 121–132; BP diastolic 72–82; PULSE 81–101; RESP 18–20; TEMP 36.5–36.8; O2SAT 83–95
[2021-06-25] MEDS: Acetaminophen 325 MG Tablet 650 MG PO (01:56)
[2021-06-25] MEDS: Enoxaparin 40 MG/0.4 ML Syringe SC (05:25)
[2021-06-25 06:56] LABS: Absolute Lymphocyte Count 2.08 X10^3/uL (0.83-4.51); Absolute Neutrophil Count 10.9 X10^3/uL (2.0-7.7); Basophil# 0.04 X10^3/uL; Basophil% 0.3 % (0-1); Eosinophil# 0.08 X10^3/uL; Eosinophils% 0.5 % (0-5); Hematocrit 44.8 % (37-47); Hemoglobin 14.1 g/dL (12.0-15.0); Lymphocyte # 2.08 X10^3/ul (0.83-4.51); Lymphocyte % 13.9 % (19-41); Mean Corp Hgb Conc 31.5 g/dL (32-36); Mean Corpuscular Volume 88.9 fL (81-99); Mean Platelet Vol. 9.7 fl (6.2-12.0); Monocyte# 1.75 X10^3/uL; Monocyte% 11.7 % (0-10); NRBC Flagged by Analyzer 0 % (0-5); Neutrophil # 10.93 X10^3/uL (2.7-7.7); Neutrophil % 73.2 % (47-70); POSITIVE DIFFERENTIAL YES; Platelet Count 272 K/mm3 (150-450); RBC Distribution Width CV 13.7 % (11.6-14.6); RBC Distribution Width SD 44.7 fl (35.1-43.9); Red Blood Count 5.04 M/mm3 (4.2-5.4); White Blood Count 14.9 K/mm3 (4.4-11.0)
[2021-06-25 06:57] LABS: Differential Indicated SCAN CRITERIA MET
[2021-06-25 07:19] LABS: Anion Gap 4 (5-15); BUN 13 mg/dL (7-18); BUN/Creat Ratio 19.1 RATIO (10-20); Chloride 102 mmol/L (98-107); Creatinine, Serum 0.68 mg/dL (0.55-1.02); EST Glomerular Filtration Rate 101 mL/min (>60); Est Glom Filt Rate - Afr Amer 122 mL/min (>60); Estimated Creatinine Clearance 101.92 ml/min; Glucose 88 mg/dL (74-106); Potassium 3.6 mmol/L (3.5-5.1); Sodium Level 136 mmol/L (136-145)
[2021-06-25 07:25] LABS: Differential Comment SCANNED
[2021-06-25] MEDS: Gabapentin 300 MG Capsule PO (09:16)
[2021-06-25] MEDS: Loratadine 10 MG Tablet PO (09:16)
[2021-06-25] MEDS: Prenatal Vits Tablet 1 TABLET PO (09:16)
[2021-06-25] MEDS: Pantoprazole Sodium 40 MG Tablet PO (09:16)
[2021-06-25] MEDS: Furosemide 40 MG/4 ML Vial IV (09:16)
[2021-06-25] MEDS: Aspirin 81 MG TAB.CHEW PO (09:16)
[2021-06-25] MEDS: Hydroxychloroquine 200 MG Tablet PO (09:16)
[2021-06-25] MEDS: Venlafaxine XR 150 MG Capsule PO (09:16)
[2021-06-25] MEDS: levoFLOXacin IV 750 MG/150 ML BAG 100 MG IV (09:27)
[2021-06-25 09:48] LABS: Pathologist Review Reviewed
[2021-06-25 09:54] LABS: Pathologist Review Reviewed
--- NOTE | 2021-06-25 10:26 | PCM.DC ---
Discharge Instructions Diet Discharge Diet: 2000 mg Sodium Diet Activity Discharge Activity: Return to Normal Activity Dressing / Incision Call your doctor if you observe: Shortness of breath, Dizziness and Chest pain Follow Up Care Test Results: Test results from this visit will be discussed in further detail at your follow-up appointment, if applicable. Discharge Plan Admission Admit Date/Time: 06/23/21 13:46 Primary Reason for Your Visit: PNA, rhinovirus Attending Provider: Angi Green Primary Care Provider: Luis E Ceja Discharge Orders/Prescriptions Prescriptions: New acetaminophen [Tylenol] 325 mg Tablet 650 mg PO Q6H PRN PRN (Reason: Pain Score 1-10/Temp > 100.7 F) Qty: 0 RF: 0 levofloxacin 750 mg tablet 750 mg PO Q24H Qty: 5 RF: 0 furosemide [Lasix] 20 mg tablet 20 mg PO BID Qty: 60 RF: 0 Continued omeprazole 20 MG capsule 40 mg PO BID RF: 0 gabapentin 300 MG capsule 300 mg PO BID RF: 0 aspirin 81 MG tablet,chewable 81 mg PO DAILY RF: 0 albuterol sulfate [Ventolin HFA] 1 INHALER inhaler 1 - 2 puff inhalation Q4H PRN PRN (Reason: Sob &/Or Wheezing) RF: 0 hydroxychloroquine 200 MG tablet 200 mg PO BIDCM RF: 0 loratadine [Allergy Relief (loratadine)] 10 MG tablet 10 mg PO DAILY RF: 0 meloxicam 15 mg tablet 15 mg PO DAILY RF: 0 venlafaxine 150 mg capsule,extended release 24hr 150 mg PO DAILY RF: 0 mycophenolate mofetil 500 mg tablet 500 mg PO 4X/DAY RF: 0 Referrals / Follow Up: Luis E Ceja MD [Primary Care Provider] - Within 2 Weeks Disposition Disposition (needs filled in before D/C Order can be placed): Home, Self Care
--- NOTE | 2021-06-25 10:38 | DS.PCM_ITS ---
Documented by User: LISANDRO Arshad 06/25/21 10:42 Providers Date of Admission: 06/23/21 Primary Care Physician: Dr. Luis E Ceja MD Reason For Visit: PNEUMONIA Diagnosis Discharge Diagnosis (1) Acute and chronic respiratory failure with hypoxia: Status: Chronic Code(s): J96.21 - Acute and chronic respiratory failure with hypoxia (2) Pneumococcal pneumonia: Status: Acute Code(s): J13 - Pneumonia due to Streptococcus pneumoniae Qualifiers: Laterality: bilateral Lung location: lower lobe of lung Qualified Code(s): J13 - Pneumonia due to Streptococcus pneumoniae Medications at Discharge Home Medications gabapentin 300 mg PO BID 12/11/15 omeprazole 40 mg PO BID 12/11/15 albuterol sulfate [Ventolin HFA] 1 - 2 puff INHALATION Q4H PRN PRN 08/13/16 aspirin 81 mg PO DAILY 08/13/16 hydroxychloroquine 200 mg PO BIDCM 10/17/16 loratadine [Allergy Relief (loratadine)] 10 mg PO DAILY 08/09/18 meloxicam 15 mg PO DAILY 06/23/21 mycophenolate mofetil 500 mg PO 4X/DAY 06/23/21 venlafaxine 150 mg PO DAILY 06/23/21 acetaminophen [Tylenol] 650 mg PO Q6H PRN PRN #0 tab 06/25/21 furosemide [Lasix] 20 mg PO BID #60 tab 06/25/21 levofloxacin 750 mg PO Q24H #5 tab 06/25/21 Hospital Course Operations None Procedures None Summary of Care Provided Minutes Spent on Discharge: 35 Hospital Course: Patient is a 40-year-old female who originally came in for increased shortness of breath and cough. Patient on 2 L nasal cannula baseline for chronic interstitial lung disease. Patient respiratory panel positive for rhinovirus and chest x-ray demonstrated bibasilar pulmonary infiltrate superimposed on a mild degree of CHF. Patient received IV Lasix while inpatient and will be discharged home with p.o. Lasix. Patient echocardiogram demonstrates EF 60%. Patient will be discharged home on 5 days of Levaquin to complete a 7-day course. Patient will also be discharged home with new O2 orders for 4 L nasal cannula with ambulation and 2 L nasal cannula at rest. Physical Exam Const alert, oriented x3 and no apparent distress General Appearance: cooperative HEENT normocephalic, head/scalp atraumatic, hearing grossly normal bilaterally and moist oral mucous membranes Eyes conjunctivae normal and no scleral icterus Neck full ROM and supple General: trachea midline Resp normal respiratory effort, no retractions, no use of accessory muscles and clear to auscultation bilaterally Effort and Inspection: able to speak in complete sentences, symmetric chest movement and tachypneic Auscultation: diminished lung sounds Cardio regular rate, regular rhythm, S1 normal heart sound and S2 normal heart sound GI normal to inspection, nondistended, normoactive bowel sounds, soft to palpation, non-tender and non-distended Extremity normal to inspection, full ROM and no clubbing, cyanosis or edema Skin no rashes or lesions noted, no wounds and skin turgor normal Neuro oriented x3, moves all extremities, no focal motor deficits and no sensory deficits noted Sensorium / Orientation: awake, alert and oriented to person Psych affect normal Weight / BMI Weight Weight: 366 lb 6.532 oz Body Mass Index (BMI) 59.1 ABG / Lab / Microbiology Data Result Diagrams: 06/25/21 06:25 06/25/21 06:25 Laboratory: Laboratory Results - last 24 hr 06/23/21 10:45: Diff Path Review Reviewed 06/24/21 06:20: Diff Path Review Reviewed 06/25/21 06:25: WBC 14.9 H, RBC 5.04, Hgb 14.1, Hct 44.8, MCV 88.9, MCH 28.0, MCHC 31.5 L, RDW Std Deviation 44.7 H, RDW Coeff of Ana 13.7, Plt Count 272, MPV 9.7, Immature Gran % (Auto) 0.400, Neut % (Auto) 73.2 H, Lymph % (Auto) 13.9 L, [place] % (Auto) 11.7 H, Eos % (Auto) 0.5, Baso % (Auto) 0.3, Absolute Neuts (auto) 10.9 H, Absolute Lymphs (auto) 2.08, Nucleated RBC % 0, Differential Comment SCANNED, Diff Path Review November06/25/21 06:25: Sodium 136, Potassium 3.6, Chloride 102, Carbon Dioxide 30.0, Anion Gap 4 L, BUN 13, Creatinine 0.68, Estim Creat Clear Calc 101.92, Est GFR (MDRD) Af Amer 122, Est GFR (MDRD) Non-Af 101, BUN/Creatinine Ratio 19.1, Glucose 88, Calcium 9.0 Microbiology: Microbiology 06/23/21 20:15 Mucosa - Nasopharyngeal Respiratory Panel (PCR) - Final Rhinovirus 06/24/21 01:35 Urine, Clean Catch Legionella Antigen - Final 06/24/21 01:35 Urine, Clean Catch Streptococcus pneumoniae Antigen (M - Final 06/23/21 11:02 Nasal Secretion SARS-CoV-2 Antigen (Rapid) - Final D/C Instructions Discharge Diet: 2000 mg Sodium Diet Call your doctor if you observe: Shortness of breath, Dizziness and Chest pain Meaningful Use Info Meaningful Use Diagnoses (Choose all that apply): None applicable Discharge Plan Admission Admit Date/Time: 06/23/21 13:46 Primary Reason for Your Visit: PNA, rhinovirus Attending Provider: Angi Green Primary Care Provider: Luis E Ceja Instructions Additional Instructions / Restrictions: Patient Problems: Altered Health Status related to Hospitalization Patient Goals: *Optimal Level of Health *Keep Appointments *Medication Compliance *Remain Safe Discharge Orders/Prescriptions Prescriptions: New acetaminophen [Tylenol] 325 mg Tablet 650 mg PO Q6H PRN PRN (Reason: Pain Score 1-10/Temp > 100.7 F) Qty: 0 RF: 0 levofloxacin 750 mg tablet 750 mg PO Q24H Qty: 5 RF: 0 furosemide [Lasix] 20 mg tablet 20 mg PO BID Qty: 60 RF: 0 Continued omeprazole 20 MG capsule 40 mg PO BID RF: 0 gabapentin 300 MG capsule 300 mg PO BID RF: 0 aspirin 81 MG tablet,chewable 81 mg PO DAILY RF: 0 albuterol sulfate [Ventolin HFA] 1 INHALER inhaler 1 - 2 puff inhalation Q4H PRN PRN (Reason: Sob &/Or Wheezing) RF: 0 hydroxychloroquine 200 MG tablet 200 mg PO BIDCM RF: 0 loratadine [Allergy Relief (loratadine)] 10 MG tablet 10 mg PO DAILY RF: 0 meloxicam 15 mg tablet 15 mg PO DAILY RF: 0 venlafaxine 150 mg capsule,extended release 24hr 150 mg PO DAILY RF: 0 mycophenolate mofetil 500 mg tablet 500 mg PO 4X/DAY RF: 0 Referrals / Follow Up: Luis E Ceja MD [Primary Care Provider] - 06/30/21 2:00 pm Disposition Disposition (needs filled in before D/C Order can be placed): Home, Self Care Documented by User: Dr. Angi Green MD 06/25/21 14:38 Providers Date of Admission: 06/23/21 Reason For Visit: PNEUMONIA Medications at Discharge Home Medications gabapentin 300 mg PO BID 12/11/15 omeprazole 40 mg PO BID 12/11/15 albuterol sulfate [Ventolin HFA] 1 - 2 puff INHALATION Q4H PRN PRN 08/13/16 aspirin 81 mg PO DAILY 08/13/16 hydroxychloroquine 200 mg PO BIDCM 10/17/16 loratadine [Allergy Relief (loratadine)] 10 mg PO DAILY 08/09/18 meloxicam 15 mg PO DAILY 06/23/21 mycophenolate mofetil 500 mg PO 4X/DAY 06/23/21 venlafaxine 150 mg PO DAILY 06/23/21 acetaminophen [Tylenol] 650 mg PO Q6H PRN PRN #0 tab 06/25/21 furosemide [Lasix] 20 mg PO BID #60 tab 06/25/21 levofloxacin 750 mg PO Q24H #5 tab 06/25/21 ABG / Lab / Microbiology Data Result Diagrams: 06/25/21 06:25 06/25/21 06:25 Discharge Plan Admission Admit Date/Time: 06/23/21 13:46 Primary Reason for Your Visit: PNA, rhinovirus Attending Provider: Angi Green Primary Care Provider: Luis E Ceja Instructions Additional Instructions / Restrictions: Patient Problems: Altered Health Status related to Hospitalization Patient Goals: *Optimal Level of Health *Keep Appointments *Medication Compliance *Remain Safe Discharge Orders/Prescriptions Prescriptions: New acetaminophen [Tylenol] 325 mg Tablet 650 mg PO Q6H PRN PRN (Reason: Pain Score 1-10/Temp > 100.7 F) Qty: 0 RF: 0 levofloxacin 750 mg tablet 750 mg PO Q24H Qty: 5 RF: 0 furosemide [Lasix] 20 mg tablet 20 mg PO BID Qty: 60 RF: 0 Continued omeprazole 20 MG capsule 40 mg PO BID RF: 0 gabapentin 300 MG capsule 300 mg PO BID RF: 0 aspirin 81 MG tablet,chewable 81 mg PO DAILY RF: 0 albuterol sulfate [Ventolin HFA] 1 INHALER inhaler 1 - 2 puff inhalation Q4H PRN PRN (Reason: Sob &/Or Wheezing) RF: 0 hydroxychloroquine 200 MG tablet 200 mg PO BIDCM RF: 0 loratadine [Allergy Relief (loratadine)] 10 MG tablet 10 mg PO DAILY RF: 0 meloxicam 15 mg tablet 15 mg PO DAILY RF: 0 venlafaxine 150 mg capsule,extended release 24hr 150 mg PO DAILY RF: 0 mycophenolate mofetil 500 mg tablet 500 mg PO 4X/DAY RF: 0 Referrals / Follow Up: Luis E Ceja MD [Primary Care Provider] - 06/30/21 2:00 pm Disposition Disposition (needs filled in before D/C Order can be placed): Home, Self Care Charges/Coding Addendum Addendum: Patient seen by Rae MCMAHON under my supervision Patient is a 40 y/o female with a PMH as outlined who was admitted with a complaint of shortness of breath. Patient is on 2L of oxygen at home, and says her shortness of breath had been worsening, so she came in to the ED. COVID PCR and antigen tests were negative. CXR was concerning for pneumonia.She was admitted and managed for acute on chronic hypoxic respiratory failure and started on ceftriaxone and azithromycin. CTA of the chest done was negative for PE. BNP was also elevated in the 270s, which would be falsely low due to her morbid obesity. She was therefore also diuresed with IV lasix. 2D echo showed LV systolic function which was normal and EF of 60% and mild concentric LVH. Respiratory panel was positive for rhinovirus. Patient gradually improved and she felt much better. She had a walking pulse ox which showed that she would require 4L of oxygen, so she was discharged home on 06/25/2021. She is to follow up with PCP in 1-2 weeks. Since CXR had showed evidence of pneumonia, she was also discharged on 5 days of PO levaquin, to complete a 7 day course. Patien seen and examined prior to discharge. She had no active complaints and felt much better. Shortness of breath had improved. Review of systems was otherwise negative. Labs and vitals reviewed. home meds reviewed and reconciled. O/E: Const alert and no apparent distress General Appearance: cooperative, super morbid obesity HEENT normocephalic, head/scalp atraumatic, hearing grossly normal bilaterally and moist oral mucous membranes Resp diminished breath sounds bibasally, no wheezes, no crackles. on 4L of oxygen Cardio regular rate, regular rhythm, S1 normal heart sound and S2 normal heart sound GI normal to inspection, nondistended, normoactive bowel sounds, soft to palpation, non-tender and non-distended Extremity normal to inspection and full ROM Skin no rashes or lesions noted Neuro oriented x3 Sensorium / Orientation: awake, alert and oriented to person Psych affect normal Plan is for discharge home today as above. Rest as per Rae Ortiz TECHNOLOGY ASSISTANT-C's note, which I have reviewed and endorsed. Visit Charges Inpatient E&M: 29426 Disch Hosp
--- NOTE | 2021-06-25 11:12 | CASEMGMT ---
Pt qualifies for 2L at rest and 4L w/ exertion, which is an increase, so new order faxed to [facility] at this time. Pt updated on all, voices understanding and declines need for any further therapy at discharge. Pt aware she can contact PCP if she feels she needs therapy once home, voices understanding. Kevin Grande CM
--- NOTE | 2021-06-25 13:51 | CASEMGMT ---
Medical service company is aware of updated order and that pt is discharging today. [facility] voices no further questions/concerns. Kevin HOUSER CM
[2021-06-28 10:23] LABS: Pathologist Review Reviewed
== END 2021-06-25 15:13 | disposition home or self-care (01) | DRG 139 ==
LOC: ED 11:24 → PCU 15:06
PROVIDERS: Internal Medicine; Nurse Practitioner Family; Emergency Provider Emergency Medicine; PCP Family Medicine; Visit Provider Student in an Organized Health Care Education/Training Program
DX: J13 Pneumonia due to Streptococcus pneumoniae (principal); J84.9 Interstitial pulmonary disease, unspecified; J96.21 Acute and chronic respiratory failure with hypoxia; B97.89 Other viral agents as the cause of diseases classified elsewhere; R91.8 Other nonspecific abnormal finding of lung field; M35.9 Systemic involvement of connective tissue, unspecified; E66.01 Morbid (severe) obesity due to excess calories; Z68.43 Body mass index [BMI] 50.0-59.9, adult; Z86.711 Personal history of pulmonary embolism; Z79.82 Long term (current) use of aspirin; Z79.899 Other long term (current) drug therapy; Z87.891 Personal history of nicotine dependence
CPT/HCPCS: 36415; 71045; 71275; 80048; 80053; 83735; 83880; 85025; 85379; 87426; 87449; 87633; 87635; 87804; 93005; 93306; 94002; 94003; 97802; 99285; J7050; Q9957; Q9967; U0005; A4216; C8929; J1940; U0003

== ENCOUNTER 2023-04-05 15:09 | Emergency (ER) | payer MEDICAID, SELFPAY ==
[2023-04-05 15:10] VITALS: BP 156/77; PULSE 84; RESP 22; TEMP 36.6; O2SAT 96
--- NOTE | 2023-04-05 15:22 | ED.VIS.DYS ---
HPI History of Present Illness Chief Complaint: Shortness of Breath Informant: patient Onset/Context/Timing Onset: Days (3) Context: gradual Timing: Continuous Quality: Positive for Dyspnea on exertion Worsened by: Exertion Relieved by: Nothing Associated Symptoms subjective and chills; Negative for cough, rhinorrhea, post nasal drip, ear pain, fever, sore throat, sweats, clear sputum, white sputum, yellow sputum or green sputum Chest Pain: Positive for Intermittent and Sharp Narrative Narrative: Patient presents with shortness of breath and chest pain that has been getting worse over the past 3 days. Patient states it came on gradually. Patient states it has been constant. Patient states that her breathing is worse with any exertion. Patient states her pain is sharp. Patient states it is worse with deep breathing. Patient states it is diffuse across her chest. Patient admits to some subjective chills but denies any fevers. Patient denies any sore throat or rhinorrhea. Patient denies any cough. PE Risk Factors: Positive for Prior DVT or PE [facility] Medical History (Updated 04/05/23 @ 18:[address] Anil Diggs, ) Chronic interstitial lung disease Connective tissue disease History of pulmonary embolism Morbid obesity Home Medications gabapentin 300 mg capsule 300 mg PO BID fibro 12/11/15 [History Last Taken 06/22/21] omeprazole 20 mg capsule,delayed release 40 mg PO BID HEARTBURN 12/11/15 [History Last Taken 06/22/21] albuterol sulfate 90 mcg/actuation aerosol inhaler (Ventolin HFA) 1 - 2 puff inhalation Q4H PRN PRN Sob &/Or Wheezing 08/13/16 [History Last Taken 06/23/21] aspirin 81 mg chewable tablet 81 mg PO DAILY PREECLAMPSIA 08/13/16 [History Last Taken 06/22/21] hydroxychloroquine 200 mg tablet 200 mg PO BIDCM RA 10/17/16 [History Last Taken 06/22/21] loratadine 10 mg tablet (Allergy Relief (loratadine)) 10 mg PO DAILY allergies 08/09/18 [History Last Taken 06/22/21] meloxicam 15 mg tablet 15 mg PO DAILY RA 06/23/21 [History Last Taken 06/22/21] mycophenolate mofetil 500 mg tablet 500 mg PO 4X/DAY 06/23/21 [History Last Taken 06/22/21] venlafaxine 150 mg capsule,extended release 24 hr 150 mg PO DAILY MOOD 06/23/21 [History Last Taken 06/22/21] acetaminophen 325 mg tablet (Tylenol) 650 mg (2 x 325 mg) PO Q6H PRN PRN Pain Score 1-10/Temp > 100.7 F #0 tabs 06/25/21 [Rx Last Taken Unknown] furosemide 20 mg tablet (Lasix) 20 mg PO BID #60 tabs 06/25/21 [Rx Last Taken Unknown] levofloxacin 750 mg tablet 750 mg PO Q24H #5 tabs 06/25/21 [Rx Last Taken Unknown] Allergy/AdvReac Type Severity Reaction Status Date / Time cephalexin monohydrate Allergy Rash Verified 04/05/23 15:10 [From Keflex] heparin Allergy Rash Verified 04/05/23 15:10 Penicillins Allergy Rash Verified 04/05/23 15:10 Family History Other ILD (interstitial lung disease) Surgical History (Updated 04/05/23 @ 15:[address] Anil Diggs DO) H/O section Hx of cholecystectomy Social History Smoking Status: Former smoker ROS ROS ED Constitutional Constitutional ED: Reports chills; Denies fever(s) Eyes Eyes: Denies blurry vision or change in vision ENT ENT ED: Denies rhinorrhea or sore throat Cardiovascular Cardiovascular: Reports chest pain; Denies palpitations Respiratory/Chest Respiratory/Chest: Reports dyspnea; Denies cough Gastrointestinal Gastrointestinal: Denies nausea or vomiting Genitourinary Genitourinary ED: Denies dysuria or hematuria Musculoskeletal Musculoskeletal: Denies back pain or neck pain Integumentary Denies abscess or rash Neurologic Neurologic: Reports headache(s); Denies weakness Allergic/Immunologic Allergic/Immunologic ED: Denies mouth swelling or urticaria EXAM Physical Exam Const Vital Signs: 04/05/23 15:10 04/05/23 15:52 04/05/23 15:52 Temperature 97.8 F Temperature Source Temporal Pulse Rate 84 Respiratory Rate 22 H Respiratory Effort Labored Blood Pressure 156/77 H Blood Pressure Mean 103 Pulse Ox 96 Oxygen Delivery Method Nasal Cannula Nasal Cannula Oxygen Flow Rate (L/min) 2 2 04/05/23 15:54 Temperature Temperature Source Pulse Rate Respiratory Rate Respiratory Effort Labored Blood Pressure Blood Pressure Mean Pulse Ox Oxygen Delivery Method Oxygen Flow Rate (L/min) Positive well nourished, well developed and obese General Appearance ED: well developed and NAD Nutritional Appearance: obese HEENT Reports moist mucous membranes Neck supple and no JVD Resp normal respiratory effort and clear to auscultation bilaterally Cardio regular rate and regular rhythm GI normal to inspection, nondistended, normoactive bowel sounds and non-tender Palpation: soft Extremity normal to inspection General Extremety ED: Negative for edema or tenderness General Extremity: Negative for edema Neuro oriented x3, CN's II-XII intact bilaterally and no sensory deficits noted Sensorium / Orientation: alert Motor Exam: strength 5/5 throughout Psych mental status grossly normal Skin no rashes or lesions noted MDM MDM MDM Narrative Medical decision making narrative: Differential diagnosis includes pulmonary embolism, pneumonia, pneumothorax, bronchitis, COVID-19 infection, influenza infection, RSV infection, cardiac ischemia, cardiac dysrhythmia, and musculoskeletal pain. CTA of the chest will be obtained to assess for pulmonary embolism, pneumonia, and pneumothorax. EKG will be obtained to assess for cardiac dysrhythmia and cardiac ischemia. CBC will be obtained to assess for leukocytosis and anemia. Basic metabolic profile will be obtained to assess for electrolyte abnormality and renal function. High-sensitivity troponin will be obtained to assess for cardiac ischemia. COVID-19 rapid antigen will be obtained to assess for COVID-19 infection. Influenza A and influenza B antigens will be obtained to assess for influenza infection. RSV antigen will be obtained to assess for RSV infection. Lab Data Attestation: I reviewed the patient's lab results. Lab results narrative: CBC was reviewed and was within normal limits. Basic metabolic profile was reviewed and was within normal limits. High-sensitivity troponin was reviewed and was normal. COVID-19 rapid antigen was reviewed and was negative. Influenza A and influenza B antigens were reviewed and were negative. RSV rapid antigen was reviewed and was negative. Labs: Laboratory Results - last 24 hr 04/05/23 15:43 WBC 9.0 RBC 5.00 Hgb 14.2 Hct 44.8 MCV 89.6 MCH 28.4 MCHC 31.7 L RDW Std Deviation 42.1 RDW Coeff of Ana 12.7 Plt Count 208 MPV 10.3 Immature Gran % (Auto) 0.200 Neut % (Auto) 63.3 Lymph % (Auto) 16.6 L Howard % (Auto) 18.2 H Eos % (Auto) 1.3 Baso % (Auto) 0.4 Absolute Neuts (auto) 5.7 Absolute Lymphs (auto) 1.49 Nucleated RBC % 0 Differential Comment Sodium 135 L Potassium 3.6 Chloride 102 Carbon Dioxide 31.0 Anion Gap 2 L BUN 17 Creatinine 0.97 Estim Creat Clear Calc 70.01 Est GFR (MDRD) Af Amer 81 Est GFR (MDRD) Non-Af 67 BUN/Creatinine Ratio 17.5 Glucose 91 Calcium 8.7 Troponin I High Sens 33 Radiography CTA PE Study: No Evidence of PE and No Evidence of Dissection Diagnostic Testing: Clinical Impression(s) from Imaging Studies Chest CTA 04/05/23 15:29 IMPRESSION: Negative CTA chest examination, without a demonstrated pulmonary embolism or arterial dissection. Cardiomegaly with likely early vascular congestion. Possible underlying small airway disease with superimposed pneumonitis versus subpleural scarring versus pulmonary fibrosis not excluded. Electronically Signed: Celsa Curry MD at 16:25 EDT , CTA of the chest was obtained. There is no pulmonary embolism or arterial dissection. There is no evidence of pneumonia or pneumothorax. This was interpreted by the radiologist and was also independently reviewed by myself. EKG Initial EKG: Attestation: I personally reviewed and interpreted this EKG as follows: Interpretation: Sinus Rhythm (79) and Non-Specific ST Changes Comments: EKG was obtained. On my independent interpretation, it showed a normal sinus rhythm with a rate of 79. [place] interval, QRS interval, and QTc intervals were all normal. There is left axis deviation at -43. There is an incomplete right bundle branch block pattern noted. There is voltage criteria for left ventricular hypertrophy. There are nonspecific ST-T wave changes. Prior EKG tracings: available for review Prior: Unchanged (06/23/2021) Treatment and Re-Evaluation :: Patient was advised of her findings. Patient was advised that this may be a viral upper respiratory infection. Patient states she is chronically on home oxygen. Patient states she has inhalers at home. Patient was instructed to use these as prescribed. Patient was instructed to follow-up with her primary care physician in 5 to 7 days. Patient understood and was agreeable with the plan. All questions were answered. Discharge Plan Triage Chief Complaint: Shortness of Breath Other Complaint: Chest Pain ED Provider: Anil Diggs Dx/Rx/DC Orders Clinical Impression: Dyspnea, Viral upper respiratory tract infection Instructions: ED Dyspnea, ED URI, Viral, No Abx (Adult) Prescriptions: No Action omeprazole 20 MG capsule 40 mg PO BID Patient Comments: HEARTBURN gabapentin 300 MG capsule 300 mg PO BID Patient Comments: ARTHRITIS PAIN aspirin 81 MG tablet,chewable 81 mg PO DAILY albuterol sulfate [Ventolin HFA] 1 INHALER inhaler 1 - 2 puff inhalation Q4H PRN PRN (Reason: Sob &/Or Wheezing) hydroxychloroquine 200 MG tablet 200 mg PO BIDCM loratadine [Allergy Relief (loratadine)] 10 MG tablet 10 mg PO DAILY meloxicam 15 mg tablet 15 mg PO DAILY venlafaxine 150 mg capsule,extended release 24hr 150 mg PO DAILY mycophenolate mofetil 500 mg tablet 500 mg PO 4X/DAY acetaminophen [Tylenol] 325 mg Tablet 650 mg PO Q6H PRN PRN (Reason: Pain Score 1-10/Temp > 100.7 F) Qty: 0 0RF levofloxacin 750 mg tablet 750 mg PO Q24H Qty: 5 0RF furosemide [Lasix] 20 mg tablet 20 mg PO BID Qty: 60 0RF Primary Care Provider: Luis E Ceja Referrals: Luis E Ceja MD [Primary Care Provider] - 5-7 Days Disposition Disposition: Home, Self Care
--- NOTE | 2023-04-05 15:29 | CT_ITS ---
STUDY: CTA CHEST REASON FOR EXAM: Female, 42 years old. Dyspnea RADIATION DOSAGE (If Supplied By Facility): CTDIvol = ( 17.33 ) mGy, DLP = ( 736.41 ) mGycm TECHNIQUE: The examination was performed with the intravenous administration of IV 100mL [id number]. Post-processing of the angiographic images was performed, with multiplanar reformation and 3D reconstruction. Individualized dose optimization techniques were used for this CT. COMPARISON: None. FINDINGS: Exam is limited due to decreased resolution from beam hardening artifact related to large body habitus. Normal enhancement of the main pulmonary artery and right and left pulmonary arteries. Normal enhancement of the bilateral peripheral pulmonary arteries. There is no demonstrated pulmonary embolism. Normal thoracic aorta and visualized great vessels. There is no demonstrated aortic dissection. Moderate cardiomegaly. Normal mediastinum. Normal hilar regions. Normal visualized trachea and bronchi. The lungs are underexpanded. There is fullness of central vascularity with interstitial septal thickening and mild hazy perihilar opacities suggestive of early congestive heart failure. Small foci of subpleural irregular thickening of interstitium in the lung apices and right lung bases with scattered subpleural coarse markings and opacities may indicate sequela of underlying scarring versus residual pneumonitis versus fibrosis. Scattered areas of mosaic pattern may indicate small airway disease . Normal pleura. Normal chest wall structures. Mild degenerative disease of the spine noted. Status post cholecystectomy otherwise normal visualized upper abdomen. CT/CTA Chest W/WO Contrast IMPRESSION: Negative CTA chest examination, without a demonstrated pulmonary embolism or arterial dissection. Cardiomegaly with likely early vascular congestion. Possible underlying small airway disease with superimposed pneumonitis versus subpleural scarring versus pulmonary fibrosis not excluded. Electronically Signed: Celsa Curry MD at 16:25 EDT ,
[2023-04-05] MEDS: Aspirin 81 MG TAB.CHEW 324 MG PO (15:49)
[2023-04-05 15:52] VITALS: BMI 63.3
[2023-04-05 15:54] LABS: Absolute Lymphocyte Count 1.49 X10^3/uL (0.83-4.51); Absolute Neutrophil Count 5.7 X10^3/uL (2.0-7.7); Basophil# 0.04 X10^3/uL; Basophil% 0.4 % (0-1); Eosinophil# 0.12 X10^3/uL; Eosinophils% 1.3 % (0-5); Hematocrit 44.8 % (37-47); Hemoglobin 14.2 g/dL (12.0-15.0); Lymphocyte # 1.49 X10^3/ul (0.83-4.51); Lymphocyte % 16.6 % (19-41); Mean Corp Hgb Conc 31.7 g/dL (32-36); Mean Corpuscular Hgb 28.4 pg (27.0-32.0); Mean Corpuscular Volume 89.6 fL (81-99); Mean Platelet Vol. 10.3 fl (6.2-12.0); Monocyte# 1.63 X10^3/uL; Monocyte% 18.2 % (0-10); NRBC Flagged by Analyzer 0 % (0-5); Neutrophil # 5.67 X10^3/uL (2.7-7.7); Neutrophil % 63.3 % (47-70); POSITIVE DIFFERENTIAL YES; Platelet Count 208 K/mm3 (150-450); RBC Distribution Width CV 12.7 % (11.6-14.6); RBC Distribution Width SD 42.1 fl (35.1-43.9)
[2023-04-05 15:56] LABS: Differential Indicated SCAN CRITERIA MET
[2023-04-05 16:12] LABS: Anion Gap 2 (5-15); BUN 17 mg/dL (7-18); BUN/Creat Ratio 17.5 RATIO (10-20); Calcium,Total 8.7 mg/dL (8.5-10.1); Chloride 102 mmol/L (98-107); Creatinine, Serum 0.97 mg/dL (0.55-1.02); EST Glomerular Filtration Rate 67 mL/min (>60); Est Glom Filt Rate - Afr Amer 81 mL/min (>60); Estimated Creatinine Clearance 70.01 ml/min; Glucose 91 mg/dL (74-106); Potassium 3.6 mmol/L (3.5-5.1); Sodium Level 135 mmol/L (136-145); Troponin-I HS 33 pg/mL (3.0-54.0)
[2023-04-05 17:09] VITALS: PULSE 88; RESP 19; O2SAT 97
== END 2023-04-05 18:11 | disposition home or self-care (01) ==
PROVIDERS: Emergency Provider Emergency Medicine; PCP Family Medicine; Visit Provider Emergency Medicine
DX: J06.9 Acute upper respiratory infection, unspecified (principal); J84.9 Interstitial pulmonary disease, unspecified; R06.00 Dyspnea, unspecified; R68.83 Chills (without fever); Z87.891 Personal history of nicotine dependence; Z99.81 Dependence on supplemental oxygen; Z79.899 Other long term (current) drug therapy
CPT/HCPCS: 71275; 80048; 84484; 85025; 87428; 87807; 93005; 96374; 99285; Q9967; A4216